=== PATIENT | male | born 1955 | race Caucasian/White ===

== ENCOUNTER 2020-05-03 13:46 | Inpatient (IN) | payer MEDICARE, MEDICAID, SELFPAY ==
[2020-05-03] VITALS (21 sets, daily range): BP systolic 118–160; BP diastolic 43–74; PULSE 38–83; RESP 14–25; TEMP 36.7–36.9; O2SAT 92–99; BMI 33.7
--- NOTE | 2020-05-03 14:07 | XR_ITS ---
WS: [id number] EXAM: AP CHEST: PORTABLE UPRIGHT DATE OF EXAM: 05/03/2020, 1413 hours COMPARISON: NONE HISTORY: Patient is 64 years old with atraumatic chest pain. FINDINGS: The cardiac silhouette is normal in size. The mediastinal contours are normal. The pulmonary vas cularity is normal. Scattered calcified granulomas in both lungs. Lungs otherwise clear of infiltrat e. There is no effusion or pneumothorax. Scattered degenerative changes are seen in the spine. XR/XR chest 1V portable [id number] IMPRESSION: No acute pulmonary disease.
--- NOTE | 2020-05-03 14:08 | ECG_ITS ---
[facility] Test Date: 2020-05-03 Pat Name: Ar Prather Department: Room: Gender: Male Fence Rider: : 1955 Requested By: Michelle Muñiz Order Number: [id number] Srikanth MD: Talib Herndon M.D. Measurements Intervals Winn Rate: 43 P: 42 HI: 159 QRS: -58 QRSD: 157 T: 15 QT: 473 QTc: 404 Interpretive Statements Sinus rhythm with a second-degree type II AV block RIGHT BUNDLE BRANCH BLOCK [120+ ms QRS DURATION, UPRIGHT V1, 40+ ms S IN I/aVL/V4/V5/V6] LEFT ANTERIOR FASCICULAR BLOCK [QRS AXIS <= -45, QR IN I, RS IN II] POSSIBLE LEFT VENTRICULAR HYPERTROPHY [VOLTAGE CRITERIA PLUS LAE OR QRS WIDENING] POSSIBLE SEPTAL MYOCARDIAL INFARCTION [30 ms Q WAVE IN V1/V2], PROBABLY OLD No previous ECG available for comparison Electronically Signed On 05-03-2020 23:03:04 CDT by Talib Herndon M.D. [id number] [email or web address]
--- NOTE | 2020-05-03 14:11 | W.ED.CHESTPA ---
HPI - Chest Pain General: Chief Complaint: Chest Pain Stated Complaint: heart problems Time Seen by Provider: 05/03/20 14:05 Source: patient Mode of arrival: ambulatory Limitations: no limitations History of Present Illness: HPI narrative: Mr. Prather is a 64-year-old male sent to the ER by his primary care physician with a concern of his EKG. Patient states he is been dizzy and lightheaded for the past 3 weeks. He has occasional near syncopal episodes with standing. He also has right-sided chest pain he states radiates through to his back. Describes as an ache. He denies any increased shortness of breath than his normal, diaphoresis, nausea or vomiting or having anything similar in the past. He states his pain is been constant since 6 or 7:00 this morning. Patient is unaware of any other aggravating or alleviating factors. He denies any other complaints or concerns. Associated symptoms: Deny abdominal pain, diaphoresis, dyspnea, fever(s), nausea, palpitations, syncope or vomiting Review of Systems Const: Denies: fever(s), chills, body aches, fatigue, malaise or diaphoresis Eyes: Denies: change in vision, blurry vision, photophobia, eye discomfort, eye discharge or eye redness ENMT: Denies: throat pain, odynophagia, hoarseness, swelling of lips/tongue, ear or mastoid pain, ear discharge, change in hearing or nasal discharge Card: Denies: palpitations, irregular heart rhythm, edema, lightheadedness, syncope, pre-syncope, dyspnea on exertion or orthopnea Resp: Denies: dyspnea, productive cough, non-productive cough, wheezing, hemoptysis or chest congestion GI: Denies: abdominal pain, nausea, vomiting, hematemesis, coffee ground emesis, heartburn, diarrhea, constipation, GI cramping, hematochezia or melena : Denies: flank pain, dysuria, urinary frequency, urinary urgency or hematuria Musc: Denies: neck pain, back pain, extremity pain, extremity swelling, joint pain, joint swelling, joint redness, joint warmth or joint stiffness Skin/Breast: Denies: rash, pruritus, erythema or skin tenderness Neuro: Reports: dizziness; Denies: headache(s), numbness in extremities, weakness in extremities, sensory changes, lack of coordination, difficulty walking, vertigo, confusion, Slurred speech present or seizure-like activity Wojciech/Lymph: Denies: easy bruising, easy bleeding, petechiae, purpura or enlarged lymph nodes All/Imm: Denies: urticaria, throat swelling, tongue swelling, facial swelling or acute wheezing PFSH ED PFSH: Medical History (Updated 05/03/20 @ 16:29 by Michelle Meléndez) Abdominal aortic aneurysm COPD (chronic obstructive pulmonary disease) Depression DJD (degenerative joint disease) Hypertension Rheumatoid arthritis Tobacco dependency Family History (Updated 05/03/20 @ 15:54 by Brian Sánchez MD) Other CAD (coronary artery disease) Social History (Updated 05/03/20 @ 15:54 by Brian Sánchez MD) Smoking and tobacco status: current some day smoker Alcohol intake: current Alcohol intake frequency: 0-2 Drinks per Day Substance/Drug Use: never Physical Exam Const: COMMON NORMALS: no acute distress, patient oriented x3, no limitations, healthy appearing and well nourished GENERAL APPEARANCE: cooperative, well kempt and well developed HENMT: COMMON NORMALS: normocephalic, atraumatic, external ears normal, EAC's normal and Normal external nose present HEAD & SCALP: normal to inspection, normocephalic and atraumatic FACE & SINUS: normal facial exam and face symmetric NOSE: Normal external nose present and Normal nares present EXTERNAL EAR: Yes external ears normal EXTERNAL AUDITORY CANAL: EAC's normal MOUTH: Normal oral and palatal mucosa present, lip normal and tongue normal Eye: COMMON NORMALS: Equal, round and reactive pupils present and conjunctivae normal GENERAL EYE: appearance normal, both eyes and all related structures ALIGNMENT: Yes alignment normal PERIORBITAL: periorbital findings normal EYELID: eyelids normal CONJUNCTIVA: Yes conjunctivae normal SCLERA: sclerae normal PUPIL: Yes Equal, round and reactive pupils present Neck/C-Spine: COMMON NORMALS: full ROM, no lymphadenopathy, supple, no meningeal signs and no JVD GENERAL: Yes normal visual inspection and Yes trachea midline Chest: COMMONS NORMALS: normal inspection of the chest and normal palpation of entire chest wall Resp: COMMON NORMALS: normal respiratory effort, No retractions, No use of accessory muscles and clear to auscultation bilaterally EFFORT & INSPECTION: Yes able to speak in complete sentences and Yes symmetric chest movement AUSCULTATION: clear to auscultation bilaterally, no crackles, no rales, no rhonchi and no wheezes Cardio: COMMON NORMALS: no JVD, regular rate, regular rhythm, S1 normal heart sound present and S2 normal heart sound present RATE: regular rate RHYTHM: regular rhythm HEART SOUNDS: S1 normal heart sound present, S2 normal heart sound present, no click, no gallops, no murmurs, no rubs and abnormal split S2 GI: COMMON NORMALS: Soft to palpation and No hepatosplenomegaly present PALPATION: Yes Soft to palpation, No Tenderness to palpation present (GI), No Guarding due to palpation present (GI), No Rigid due to palpation, Yes No hepatosplenomegaly present, No Hernia present, No Palpable mass present and No Pulsatile mass present : COMMON NORMALS: Yes no CVA tenderness BLADDER/KIDNEY EXAM: Yes no CVA tenderness Back/Pelvis: COMMON NORMALS: no CVA tenderness, thoracic and lumbar spine normal to inspection, no thoracic nor lumbar tenderness and thoraco-lumbar ROM normal Extremity: COMMON NORMALS: normal to inspection, full ROM, capillary refill normal, no joint enlargement, no clubbing, cyanosis or edema and no calf tenderness Neuro: COMMON NORMALS: patient oriented x3, CN's II-XII intact bilaterally, moves all extremities, no focal motor deficits and no sensory deficits noted MENINGEAL SIGNS: Yes no meningeal signs SPEECH: speech normal Psych: COMMON NORMALS: mental status grossly normal, Normal thought process present, cooperative, normal affect, speech normal and activity/motor behavior normal APPEARANCE: Yes well kempt SPEECH: Yes normal speech THOUGHT PROCESS: Normal thought process present Skin: COMMON NORMALS: no rashes or lesions noted, turgor normal, no jaundice, no petechiae and no mottling GENERAL SKIN EXAM: no rashes or lesions noted and turgor normal Course Vital Signs: Vital signs: Vital Signs Temperature 98.0 F 05/03/20 13:49 Pulse Rate 63 05/03/20 14:45 Respiratory Rate 15 05/03/20 14:45 Blood Pressure 141/72 05/03/20 14:45 Pulse Oximetry 97 05/03/20 14:45 MDM - Chest Pain MDM Narrative: Medical decision making narrative: The case was reviewed with Dr. Pickett, he will consult would like the hospitalist to admit. He thinks the patient is likely going to need a pacemaker. The case reviewed with Dr. Sánchez he is agreeable to admission to the ICU. Currently the patient's heart rate is in the 50s on a low-dose of dopamine. Lab Data: Attestation: I reviewed the patient's lab results. Labs: Lab Results 05/03/20 05/03/20 05/03/20 Range/Units 14:32 14:32 14:32 WBC 7.2 (4.0-10.0) 10^3/ uL RBC 4.22 (4.1-5.3) 10^6/u L Hgb 13.7 (11.7-16.6) g/dL Hct 41.0 L (42.0-52.0) % MCV 97.2 H (80-94) fL MCH 32.5 (28.0-34.0) pg MCHC 33.4 (30.0-36.0) g/dL RDW 12.5 (12.1-15.1) % Plt Count 276 (130-400) 10^3/c mm MPV 10.2 (7.4-10.4) fL Neut % (Auto) 69.6 % Lymph % (Auto) 17.5 % Van Zandt % (Auto) 11.1 % Eos % (Auto) 1.1 % Baso % (Auto) 0.4 % Neut # (Auto) 5.01 (1.8-7.7) 10^3/u L Lymph # (Auto) 1.3 (0.8-4.8) 10^3/u L [place]t # (Auto) 0.8 (0.2-0.9) 10^3/u L Eos # (Auto) 0.1 (0.0-0.8) 10^3/u L Baso # (Auto) 0.0 (0.0-0.1) 10^3/u L Nucleated RBC % (a uto) 0 % Nucleated RBCs # 0.0 /100WBC PT 13.00 (12.1-14.9) SECO NDS INR 0.96 (0.8-1.2) APTT 25.2 (23.9-36.7) SECO NDS Sodium 136 (136-145) mmol/L Potassium 4.4 (3.5-5.1) mmol/L Chloride 103 (98-107) mmol/L Carbon Dioxide 23 (22-29) mmol/L Anion Gap 14.4 (5-19) BUN 22 (8-23) mg/dL Creatinine 0.9 (0.7-1.2) mg/dL GFR Calculation 84.4 L (90-130) mL/min Glucose 107 (65-115) mg/dL Calculated Osmolal ity 279 L (285-295) mOsm/k g Calcium 9.5 (8.5-10.5) mg/dL Magnesium 2.0 (1.7-2.3) mg/dL Total Bilirubin 0.5 (0.15-1.2) mg/dL AST 57 H (0-40) U/L ALT 32 (0-41) U/L Alkaline Phosphata se 60 (40-130) IU/L Troponin T Baselin e (0-15) ng/L Total Protein 6.9 (6.6-8.7) g/dL Albumin 4.4 (3.5-5.2) g/dL Globulin 2.5 (1.3-4.6) g/dL Free T4 0.95 (0.82-1.77) ng/d L Urine Color (Yellow) Urine Appearance (CLEAR) Urine pH (5-7) Ur Specific Gravit y (1.005-1.030) Urine Protein (Negative) Urine Glucose (UA) (Normal) Urine Ketones (Negative) Urine Blood (Negative) Urine Nitrate (Negative) Urine Bilirubin (NEGATIVE) Urine Urobilinogen (Negative) mg/dL Ur Leukocyte Maria D ase (Negative) Urine RBC (0-2) /hpf Urine WBC (0-5) /hpf Ur Squamous Epith Cells (0-5) Amorphous Sediment Urine Bacteria (NONE) 05/03/20 05/03/20 Range/Units 14:32 14:44 WBC (4.0-10.0) 10^3/ uL RBC (4.1-5.3) 10^6/u L Hgb (11.7-16.6) g/dL Hct (42.0-52.0) % MCV (80-94) fL MCH (28.0-34.0) pg MCHC (30.0-36.0) g/dL RDW (12.1-15.1) % Plt Count (130-400) 10^3/c mm MPV (7.4-10.4) fL Neut % (Auto) % Lymph % (Auto) % Van Zandt % (Auto) % Eos % (Auto) % Baso % (Auto) % Neut # (Auto) (1.8-7.7) 10^3/u L Lymph # (Auto) (0.8-4.8) 10^3/u L [place]andt # (Auto) (0.2-0.9) 10^3/u L Eos # (Auto) (0.0-0.8) 10^3/u L Baso # (Auto) (0.0-0.1) 10^3/u L Nucleated RBC % (a uto) % Nucleated RBCs # /100WBC PT (12.1-14.9) SECO NDS INR (0.8-1.2) APTT (23.9-36.7) SECO NDS Sodium (136-145) mmol/L Potassium (3.5-5.1) mmol/L Chloride (98-107) mmol/L Carbon Dioxide (22-29) mmol/L Anion Gap (5-19) BUN (8-23) mg/dL Creatinine (0.7-1.2) mg/dL GFR Calculation (90-130) mL/min Glucose (65-115) mg/dL Calculated Osmolal ity (285-295) mOsm/k g Calcium (8.5-10.5) mg/dL Magnesium (1.7-2.3) mg/dL Total Bilirubin (0.15-1.2) mg/dL AST (0-40) U/L ALT (0-41) U/L Alkaline Phosphata se (40-130) IU/L Troponin T Baselin e 14 (0-15) ng/L Total Protein (6.6-8.7) g/dL Albumin (3.5-5.2) g/dL Globulin (1.3-4.6) g/dL Free T4 (0.82-1.77) ng/d L Urine Color Yellow (Yellow) Urine Appearance Clear (CLEAR) Urine pH 5 (5-7) Ur Specific Gravit y 1.020 (1.005-1.030) Urine Protein Neg (Negative) Urine Glucose (UA) Norm (Normal) Urine Ketones Negative (Negative) Urine Blood Neg (Negative) Urine Nitrate Negative (Negative) Urine Bilirubin Neg (NEGATIVE) Urine Urobilinogen 1 H (Negative) mg/dL Ur Leukocyte Maria D ase Negative (Negative) Urine RBC 0-4 H (0-2) /hpf Urine WBC None (0-5) /hpf Ur Squamous Epith Cells None (0-5) Amorphous Sediment Not Reportable Urine Bacteria None (NONE) Imaging Data^: CXR: Attestation: I personally reviewed and interpreted this imaging study as follows: My impression: No acute cardiopulmonary finding EKG Data^: EKG 1: Attestation: I personally reviewed and interpreted this EKG as follows: EKG interpretation date: 05/03/20 EKG interpretation time: 13:52 Interpretation: Sinus rhythm at 43 beats a minute with probable second-degree AV heart block type II. Right bundle branch block, LVH. EKG 2: Attestation: I personally reviewed and interpreted this EKG as follows: EKG interpretation date: 05/03/20 EKG interpretation time: 16:12 Interpretation: Normal sinus rhythm at 66 beats a minute second-degree AV block type II, right bundle branch block. LVH. Discharge Plan Discharge Patient Disposition: Admitted As Inpatient Clinical Impression: Mobitz type 2 second degree heart block Condition: Stable Prescriptions: No Action cyclobenzaprine 10 mg tablet 10 mg PO TID PRN (Reason: muscle spasms) RF: 0 prednisone 5 mg tablet 5 mg PO DAILY RF: 0 hydrocodone-acetaminophen 10-325 mg tablet 1 tab PO Q6H PRN (Reason: Pain) RF: 0 venlafaxine 100 mg tablet 100 mg PO DAILY RF: 0 lisinopril-hydrochlorothiazide 20-25 mg tablet 1 tab PO DAILY RF: 0 montelukast 10 mg tablet 10 mg PO DAILY RF: 0 hydroxychloroquine 200 mg tablet 200 mg PO BID RF: 0 albuterol sulfate 90 mcg/actuation HFA aerosol inhaler See Rx Instructions .ROUTE .COMPLEX RF: 0 loratadine 10 mg tablet 10 mg PO DAILY RF: 0 naproxen 500 mg tablet 500 mg PO BID RF: 0 Restasis 0.05 % dropperette See Rx Instructions .ROUTE .COMPLEX RF: 0 Symbicort 160-4.5 mcg/actuation HFA aerosol inhaler See Rx Instructions .ROUTE .COMPLEX RF: 0 azelastine-fluticasone 137-50 mcg/spray spray,non-aerosol See Rx Instructions .ROUTE .COMPLEX RF: 0 Xeljanz XR 11 mg tablet extended release 24 hr 11 mg PO DAILY RF: 0 Referrals: Beverly Griffith FNP [Primary Care Provider] - Coding Level of Care Code ED Back Tender Cylinder for Chg Fwd Exam Comprehensive
[2020-05-03] MEDS: sodium chloride 0.9% 1,000 ML 100 ML IV ×2 (14:15→18:40)
[2020-05-03 14:40] LABS: Basophils % 0.4 %; Eosinophils # 0.1 10^3/uL (0.0-0.8); Eosinophils % 1.1 %; Hemoglobin 13.7 g/dL (11.7-16.6); Lymphocytes # 1.3 10^3/uL (0.8-4.8); Lymphocytes % 17.5 %; Mean Corpuscular HGB Conc 33.4 g/dL (30.0-36.0); Mean Corpuscular Hemoglobin 32.5 pg (28.0-34.0); Mean Corpuscular Volume 97.2 fL (80-94); Mean Platelet Volume 10.2 fL (7.4-10.4); Monocytes # 0.8 10^3/uL (0.2-0.9); Monocytes % 11.1 %; Neutrophils # 5.01 10^3/uL (1.8-7.7); Neutrophils % 69.6 %; Nucleated Red Blood Cells % 0 %; Platelet Count 276 10^3/cmm (130-400); Red Blood Count 4.22 10^6/uL (4.1-5.3); Red Cell Distribution Width 12.5 % (12.1-15.1); White Blood Count 7.2 10^3/uL (4.0-10.0)
[2020-05-03 14:57] LABS: INR 0.96 (0.8-1.2)
[2020-05-03 14:58] LABS: Partial Thromboplastin Time 25.2 SECONDS (23.9-36.7)
[2020-05-03 15:01] LABS: Troponin(5th) Baseline 14 ng/L (0-15)
[2020-05-03] MEDS: atropine 0.1 mg/mL Syr 10 mL 0.5 MG IVP (15:05)
[2020-05-03 15:09] LABS: Alanine Aminotransferase 32 U/L (0-41); Albumin Level 4.4 g/dL (3.5-5.2); Alkaline Phosphatase 60 IU/L (40-130); Anion Gap 14.4 (5-19); Aspartate Amino Transferase 57 U/L (0-40); Blood Urea Nitrogen 22 mg/dL (8-23); Calcium 9.5 mg/dL (8.5-10.5); Carbon Dioxide 23 mmol/L (22-29); Chloride 103 mmol/L (98-107); Free T4 Free Thyroxine 0.95 ng/dL (0.82-1.77); Globulin 2.5 g/dL (1.3-4.6); Glomerular Filtration Rate 84.4 mL/min (90-130); Glucose 107 mg/dL (65-115); Osmolality Calculated 279 mOsm/kg (285-295); Potassium 4.4 mmol/L (3.5-5.1); Sodium 136 mmol/L (136-145); Total Bilirubin 0.5 mg/dL (0.15-1.2); Total Protein 6.9 g/dL (6.6-8.7)
[2020-05-03] MEDS: DOPamine drip 400 MG/250 ML PREMIX 19.5 MG IV ×2 (15:15→21:08)
[2020-05-03 15:22] LABS: Add Urine Culture? No; Bilirubin Urine Neg (NEGATIVE); Blood Urine Neg (Negative); Glucose Urine UA Norm (Normal); Ketones Urine Negative (Negative); Leukocyte Esterase Urine Negative (Negative); Nitrate Urine Negative (Negative); Protein Urine Neg (Negative); RBC Urine 0-4 /hpf (0-2); Urine Appearance Clear (CLEAR); Urine Color Yellow (Yellow); Urobilinogen Urine 1 mg/dL (Negative); pH Urine 5 (5-7)
--- NOTE | 2020-05-03 15:50 | P.HP_ITS ---
Providers/Chief Complaint Primary Care Provider: NIKI Lamb Chief Complaint: heart problems History of Present Illness Ar Prather is a 64 year old male that presents to the emergency department with history of dizziness for the last 3 weeks, most accentuated when he stands up from a sitting position. He has had one episode where he almost lost consciousness. He has had occasional chest discomfort, mainly in the right side of his chest. It goes to his back and as an ache. He reports no chest discomfort with inspiration, no leg pain or swelling. He denies any exertional quality to it. He states the discomfort was more significant today so he came into the hospital. He has not had any fever, exposure to COVID, or personally had COVID. He denies any prior history of heart disease. He does relate a history of an abdominal aortic aneurysm, followed by vascular surgery at [facility]. According to ER staff, his heart rate has been as low as the mid 30s, and he has been in a Mobitz type II block. He was started on dopamine for this symptomatic bradycardia and his heart rate is currently 50. Review of Systems General: Reports: 10 or more systems reviewed and unremarkable except in HPI and below Const: Denies: fever(s) Eyes: Denies: change in vision ENMT: Denies: throat pain Card: Reports: chest pain Resp: Denies: dyspnea GI: Denies: abdominal pain : Denies: flank pain Musc: Denies: neck pain Skin/Breast: Denies: rash Neuro: Denies: headache(s) Psych: Denies: anxiety Endo: Denies: polyuria Wojciech/Lymph: Denies: easy bruising All/Imm: Denies: urticaria Medications/Allergies Home Medications Medication Instructions Recorded Confirmed Last Taken Type albuterol sulfate See Rx Instructions .ROUTE .COMPLEX 05/03/20 05/03/20 Unknown History azelastine-fluticasone See Rx Instructions .ROUTE .COMPLEX 05/03/20 05/03/20 05/03/20 History budesonide-formoterol [Symbicort] See Rx Instructions .ROUTE .COMPLEX 05/03/20 05/03/20 05/03/20 History cyclobenzaprine 10 mg PO TID PRN 05/03/20 05/03/20 Unknown History cyclosporine [Restasis] See Rx Instructions .ROUTE .COMPLEX 08/05/03/20 05/03/20 History hydrocodone-acetaminophen 1 tab PO Q6H PRN 05/03/20 05/03/20 Unknown History hydroxychloroquine 200 mg PO BID 05/03/20 05/03/20 05/03/20 History lisinopril-hydrochlorothiazide 1 tab PO DAILY 05/03/20 05/03/20 05/03/20 History loratadine 10 mg PO DAILY 05/03/20 05/03/20 05/03/20 History montelukast 10 mg PO DAILY 05/03/20 05/03/20 05/02/20 History naproxen 500 mg PO BID 05/03/20 05/03/20 05/03/20 History prednisone 5 mg PO DAILY 05/03/20 05/03/20 05/03/20 History tofacitinib [Xeljanz XR] 11 mg PO DAILY 05/03/20 05/03/20 05/03/20 History venlafaxine 100 mg PO DAILY 05/03/20 05/03/20 05/03/20 History Allergies Allergy/AdvReac Type Severity Reaction Status Date / Time etanercept [From Enbrel] Allergy ADR-Agitate Verified 05/03/20 15:27 d PFSH Acute PFSH: Medical History (Updated 05/03/20 @ 16:05 by Brian Sánchez MD) Abdominal aortic aneurysm COPD (chronic obstructive pulmonary disease) Depression DJD (degenerative joint disease) Hypertension Rheumatoid arthritis Tobacco dependency Family History (Updated 05/03/20 @ 15:54 by Brian Sánchez MD) Other CAD (coronary artery disease) Social History (Updated 05/03/20 @ 15:54 by Brian Sánchez MD) Smoking and tobacco status: current some day smoker Alcohol intake: current Alcohol intake frequency: 0-2 Drinks per Day Substance/Drug Use: never Supplemental PFSH Information: Denies significant related surgical procedures. Vitals/I&O/Wt Last Vital Signs Temp 98.0 F 05/03/20 13:49 Pulse 63 05/03/20 14:45 Resp 15 05/03/20 14:45 BP 141/72 05/03/20 14:45 Pulse Ox 97 05/03/20 14:45 Weight last 48 hrs Weight 103.873 kg Physical Exam Narrative: EXAM NARRATIVE: General exam is a white male, no apparent distress on dopamine with a heart rate approximately 52 HEENT: Pupils equally round. Oropharynx clear. Neck is supple no lymphadenopathy or thyromegaly Cardiovascular bradycardic, 2/6 systolic murmur Lungs clear no wheezing or crackles. Diminished breath sounds bilaterally. Abdomen is soft with positive bowel sounds. No obvious organomegaly was deferred Extremities no cyanosis clubbing or edema, cap refill brisk, pulses palpable Skin no rash Neuro no focal deficits Data : 05/03/20 14:32 05/03/20 14:32 Other data: EKG in the emergency department demonstrated a heart rate of 43, Mobitz type II block, left axis deviation, right bundle branch block Free T4 is normal. Troponin is 14. AST 57, the rest of the LFTs are normal. Chest x-ray no infiltrate. A&P Assessment and plan (1) Mobitz (type) II atrioventricular block: Significant bradycardia, with what appears to be a Mobitz type II block. Placed on dopamine in the emergency department. Will continue. Admission to ICU Cardiology consultation Check TSH Magnesium and potassium levels have been checked and normal Status: Acute (2) Dizziness: Secondary to above Status: Acute (3) Chest pain: May have been related to his abnormal rhythm. We will attempt to get records regarding his past history of aortic aneurysm. From what they described this was abdominal. Serial troponins Check echocardiogram Status: Acute (4) Tobacco dependency: Encourage abstinence Status: Acute Additional A&P Information History of aortic aneurysm, which patient reports is abdominal. Will request records. Hypertension. Hold meds currently Rheumatoid arthritis, holding meds currently Probable COPD. Albuterol. Full code SCDs for DVT prophylaxis, pending cardiology evaluation as he may need pacemaker placement. Attestations Medical Necessity Statement*: Will need greater than 2 midnight stay for evaluation and treatment of cardiac arrhythmia. Time Spent in Patient Care: Greater than 35 minutes Coding Level of Care Code Acute Community Service Aide for Chg Fwd Diagnoses Mobitz (type) II atrioventricular block I44.1 Dizziness R42 Chest pain R07.9 Tobacco dependency F17.200
--- NOTE | 2020-05-03 15:57 | USCV_ITS ---
Ar Prather Age: 64 Gender: M : 1955 Exam Date: 05/03/2020 16:21 Ordering Phys: Brian Sánchez MD Technologist: Aby Jones Exam Location: [facility] [place]_ Indication: ARRYHTHMIA BP: 138 / 63 HR: 46 Rhythm: Other Technical Quality: Fair MEASUREMENTS (Male / Female) Normal Values 2D ECHO LV Diastolic Diameter PLAX 5.0 cm 4.2 - 5.9 / 3.9 - 5.3 cm LV Systolic Diameter PLAX 2.9 cm LV Chamber Size 4.7 cm IVS Diastolic Thickness 1.3 cm 0.6 - 1.0 / 0.6 - 0.9 cm IVS Systolic Thickness 2.1 cm LVPW Diastolic Thickness 1.0 cm 0.6 - 1.0 / 0.6 - 0.9 cm LVPW Systolic Thickness 1.7 cm RV Chamber Size 3.0 cm LVOT Diameter 2.1 cm LV Ejection Fraction 2D Teich 71.1 % LV Ejection Fraction MOD 2C 68.6 % LV Ejection Fraction 2C AL 69.4 % LA Diameter 4.0 cm LA Width 3.3 cm LA Height 5.0 cm RA Width 2.8 cm RA Height 5.0 cm Aorta at Sinotubular Diameter 3.3 cm M-MODE LV Diastolic Diameter MM 6.5 cm 4.2 - 5.9 / 3.9 - 5.3 cm LV Systolic Diameter MM 3.9 cm LV Ejection Fraction MM Teich 69.7 % IVS Diastolic Thickness MM 0.9 cm 0.6 - 1.0 / 0.6 - 0.9 cm IVS Systolic Thickness MM 1.6 cm LVPW Diastolic Thickness MM 1.2 cm 0.6 - 1.0 / 0.6 - 0.9 cm LVPW Systolic Thickness MM 1.7 cm RV Diastolic Diameter MM 1.1 cm Aortic Annulus Diameter 3.8 cm LA Ao Ratio MM 1.0 MV E Point Septal Separation 1.2 cm DOPPLER AV Peak Velocity 165.0 cm/s LVOT Peak Velocity 102.0 cm/s AV Area Cont Eq vti 2.2 cm squared AV Area Cont Eq pk 2.1 cm squared MV Area PHT 4.1 cm squared Mitral E to A Ratio 0.8 MV E' Velocity 8.0 cm/s Mitral E to MV E' Ratio 9.3 Mitral E to LV E' Lateral Ratio 10.3 Mitral E to LV E' Septal Ratio 8.6 TR Peak Velocity 204.2 cm/s TR Peak Gradient 16.7 mmHg TR Mean Velocity 176.1 cm/s TR Mean Gradient 12.5 mmHg TR Velocity Time Integral 49.2 cm TV Peak E Velocity 92.0 cm/s PV Peak Velocity 104.0 cm/s FINDINGS Left Ventricle Normal left ventricular cavity size. Normal left ventricular systolic function. No regional wall motion abnormalities. Left ventricular ejection fraction is estimated at 60 %. Grade I/IV diastolic dysfunction (abnormal relaxation filling pattern), normal to mildly elevated filling pressures. Right Ventricle The right ventricle is normal in size and function.RVSP could not be calculated due to incomplete tricuspid regurgitation velocity profile. Right Atrium The right atrium is normal in size. Left Atrium The left atrium is normal in size. Mitral Valve Mildly thickened mitral valve. No mitral valve stenosis. Aortic Valve Moderate aortic valve calcification. No aortic valve stenosis. Trace aortic valve regurgitation. Tricuspid Valve Structurally normal tricuspid valve without significant stenosis or regurgitation. Pulmonic Valve Structurally normal pulmonic valve without significant stenosis. There is no pulmonic regurgitation. Pericardium Normal pericardium without effusion. Aorta Normal ascending aorta dimension. CONCLUSIONS 1-Normal left ventricular cavity size. Normal left ventricular systolic function. No regional wall motion abnormalities. Left ventricular ejection fraction is estimated at 60 %. Grade I/IV diastolic dysfunction (abnormal relaxation filling pattern), normal to mildly elevated filling pressures. 2-There is no pericardial effusion. 3-No significant valve abnormalities. 4-The right ventricle is normal in size and function.RVSP could not be calculated due to incomplete tricuspid regurgitation velocity profile. 5-There are no prior echocardiogram studies to compare. Clarke Harris MD (Electronically Signed) Final Date: 03 May 2020 21:36 S
--- NOTE | 2020-05-03 16:08 | ECG_ITS ---
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 Measurements Intervals [place] Rate: 66 P: UT: -1 QRS: -64 QRSD: 153 T: -7 QT: 494 QTc: 519 Interpretive Statements SINUS RHYTHM WITH 2ND DEGREE type 2 AV BLOCK, 2:1 OR MOBITZ TYPE II RIGHT BUNDLE BRANCH BLOCK [120+ ms QRS DURATION, UPRIGHT V1, 40+ ms S IN I/aVL/V4/V5/V6] LEFT ANTERIOR FASCICULAR BLOCK [QRS AXIS <= -45, QR IN I, RS IN II] MINIMAL VOLTAGE CRITERIA FOR LVH, CONSIDER NORMAL VARIANT [MEETS CRITERIA IN ONE OF: R(aVL), S(V1), R(V5), R(V5/V6)+S(V1)] PROBABLE SEPTAL MYOCARDIAL INFARCTION , PROBABLY OLD [35 ms Q WAVE IN V1/V2] CRITICAL TEST RESULT No previous ECG available for comparison Electronically Signed On 05-03-2020 23:35:43 CDT by Talib Herndon M.D. [id number]
[2020-05-03 16:55] LABS: Thyroid Stimulating Hormone 0.84 uIU/mL (0.27-4.20)
[2020-05-03 17:14] LABS: Troponin 5 2HR 16.38 ng/L (0-15); Troponin 5 2HR Delta 2.38 ABS# (0-10)
--- NOTE | 2020-05-03 19:24 | PM.CONSULT ---
Providers/Reason For Consult Consulting Physican/Specialty*: Cardiology Reason for Consult*: High degree AV block Mobitz type II with symptomatic bradycardia Presyncope Chest pain concerning for angina Attending Physician: Brian Sánchez MD Primary Care Provider: NIKI Lamb History of Present Illness History of Present Illness Ar Prather is a 64 year old male presented to ER with fatigue shortness of breath chest pain. He was found to be bradycardic with heart rate into 40s and EKG consistent with Mobitz type II heart block. According to the patient and his for the past 2 to 3 months he has been struggling with fatigue dizziness and occasional feeling of presyncope. Yesterday he was about to pass out when he tried to stand up from sitting position but his son caught him. Today he went to urgent care where they noted slow heart rate and instructed him to go to ER. He gives me history of on and off chest pain anywhere from 5 to 15 minutes 2-3 times a week sometimes at rest and other on exertion. He has not seek any medical attention for it. He denies any prior history of CAD, bradycardia, stress test or angiograms. He has more than 50-tice-bimc of smoking, hypertension COPD and rheumatoid arthritis. He has also been diagnosed with possible ascending aortic aneurysm according to him he had CT chest he was told that he has aneurysm of 4.5 cm2. He has history of tick borne fever for which he has been treated in the past. He denies being on cornelia wisam or any other azna-gxo-spcgoxv medicine. He has persistent cough for long period of time he is taking lisinopril. Review of Systems General: Reports: 10 or more systems reviewed and unremarkable except in HPI and below Const: Denies: fever(s), chills, body aches, fatigue, malaise or diaphoresis Eyes: Denies: change in vision, blurry vision, photophobia, eye discomfort, eye discharge or eye redness ENMT: Denies: throat pain, odynophagia, hoarseness, swelling of lips/tongue, ear or mastoid pain, ear discharge, change in hearing or nasal discharge Card: Reports: chest pain; Denies: palpitations, irregular heart rhythm, edema, lightheadedness, syncope, pre-syncope, dyspnea on exertion or orthopnea Resp: Denies: dyspnea, productive cough, non-productive cough, wheezing, hemoptysis or chest congestion GI: Denies: abdominal pain, nausea, vomiting, hematemesis, coffee ground emesis, heartburn, diarrhea, constipation, GI cramping, hematochezia or melena : Denies: flank pain, dysuria, urinary frequency, urinary urgency or hematuria Musc: Denies: neck pain, back pain, extremity pain, extremity swelling, joint pain, joint swelling, joint redness, joint warmth or joint stiffness Skin/Breast: Denies: rash, pruritus, erythema or skin tenderness Neuro: Reports: dizziness; Denies: headache(s), numbness in extremities, weakness in extremities, sensory changes, lack of coordination, difficulty walking, vertigo, confusion, Slurred speech present or seizure-like activity Psych: Denies: anxiety Endo: Denies: polyuria Wojciech/Lymph: Denies: easy bruising, easy bleeding, petechiae, purpura or enlarged lymph nodes All/Imm: Denies: urticaria, throat swelling, tongue swelling, facial swelling or acute wheezing Meds/Allergies Home Medications and Allergies Home Medications Medication Instructions Recorded Confirmed Last Taken Type albuterol sulfate See Rx Instructions .ROUTE .COMPLEX 05/03/20 05/03/20 Unknown History azelastine-fluticasone See Rx Instructions .ROUTE .COMPLEX 05/03/20 05/03/20 05/03/20 History budesonide-formoterol [Symbicort] See Rx Instructions .ROUTE .COMPLEX 05/03/20 05/03/20 05/03/20 History cyclobenzaprine 10 mg PO TID PRN 05/03/20 05/03/20 Unknown History cyclosporine [Restasis] See Rx Instructions .ROUTE .COMPLEX 05/03/20 05/03/20 05/03/20 History hydrocodone-acetaminophen 1 tab PO Q6H PRN 05/03/20 05/03/20 Unknown History hydroxychloroquine 200 mg PO BID 05/03/20 05/03/20 05/03/20 History lisinopril-hydrochlorothiazide 1 tab PO DAILY 05/03/20 05/03/20 05/03/20 History loratadine 10 mg PO DAILY 05/03/20 05/03/20 05/03/20 History montelukast 10 mg PO DAILY 05/03/20 05/03/20 05/02/20 History naproxen 500 mg PO BID 05/03/20 05/03/20 05/03/20 History prednisone 5 mg PO DAILY 05/03/20 05/03/20 05/03/20 History tofacitinib [Xeljanz XR] 11 mg PO DAILY 05/03/20 05/03/20 05/03/20 History venlafaxine 100 mg PO DAILY 05/03/20 05/03/20 05/03/20 History Allergies Allergy/AdvReac Type Severity Reaction Status Date / Time etanercept [From Enbrel] Allergy ADR-Agitate Verified 05/03/20 15:27 d Current Medications Current Medications Generic Name Dose Route Start Last Admin Trade Name Freq PRN Reason Stop Dose Admin Sodium Chloride 1,000 mls @ 100 mls/hr 05/03/20 14:15 05/03/20 14:15 Sodium Chloride 0.9% IV 100 mls/hr .Q10H FABIENNE Administration Dopamine HCl/Dextrose 400 mg in 250 mls @ 19.476 mls/hr 05/03/20 15:15 05/03/20 15:15 Intropin Drip IV 5 mcg/kg/min CONT FABIENNE 19.5 mls/hr Administration Protocol 5 MCG/KG/MIN Sodium Chloride 1,000 mls @ 100 mls/hr 05/03/20 18:12 05/03/20 18:40 Sodium Chloride 0.9% IV 100 mls/hr .Q10H FABIENNE Administration PFSH Acute PFSH: Medical History Abdominal aortic aneurysm COPD (chronic obstructive pulmonary disease) Depression DJD (degenerative joint disease) Hypertension Rheumatoid arthritis Tobacco dependency Family History Other CAD (coronary artery disease) Social History Smoking and tobacco status: current some day smoker Alcohol intake: current Alcohol intake frequency: 0-2 Drinks per Day Substance/Drug Use: never Supplemental PFSH Information: Denies significant related surgical procedures. Vitals/I&O/Wt Last Vital Signs Temp 98.4 F 05/03/20 18:15 Pulse 81 05/03/20 18:15 Resp 19 H 05/03/20 18:15 BP 155/62 05/03/20 18:15 Pulse Ox 96 05/03/20 18:15 Weight last 48 hrs Weight 229 lb Physical Exam Narrative: EXAM NARRATIVE: GENERAL: Patient is alert, awake and oriented x3. NECK: No jugular vein distension. HEENT: No cyanosis. No icterus. No pallor. HEART: Regularly irregular S1 and S2. No murmur, rub or gallop. LUNGS: Clear to auscultate bilaterally. ABDOMEN: Soft, nontender and nondistended. Positive bowel sounds. No guarding, rebound or tenderness. CENTRAL NERVOUS SYSTEM: Grossly nonfocal. EXTREMITIES: Lower extremities without edema bilaterally. A&P Assessment and plan (1) Mobitz type 2 second degree heart block: Patient is symptomatic with high degree AV block. Twelve-lead EKG consistent with right bundle branch block and wide QRS complex. He is not on any cornelia wisam. We will rule out reversible causes such as ischemia since he is complaining of chest pain we will proceed with angiogram first thing in the morning. If he continues to exhibit symptomatic bradycardia with high degree heart block we will proceed with permanent pacemaker placement. Patient and the family has been discussed with all risk benefit and alternative for the procedure, they would like to proceed with it. Patient and family has been consented for left heart cath/PCI if indicated in the morning. For now continue dopamine drip. Atropine by bedside and monitor in ICU. Further plan will be advised. I will check TSH Status: Acute (2) Tobacco dependency: Advised quitting smoking Status: Acute (3) Chest pain: Patient is high risk for acute coronary syndrome past medical history significant for continuous tobacco abuse hypertension and rheumatoid arthritis. In the face of second-degree heart block and worsening of chest pain over the last few days would like to rule out coronary ischemia. We will proceed with left heart cath in the morning. Status: Acute Qualifiers: Chest pain type: precordial pain Qualified Code(s): R07.2 - Precordial pain (4) COPD (chronic obstructive pulmonary disease): As per medicine Status: Acute Qualifiers: COPD type: unspecified COPD Qualified Code(s): J44.9 - Chronic obstructive pulmonary disease, unspecified (5) Hypertension: Patient has history of uncontrolled hypertension he is on lisinopril. He continues to have dry hacking cough. I will discontinue lisinopril and switch him to ARB Status: Acute Qualifiers: Hypertension type: essential hypertension Qualified Code(s): I10 - Essential (primary) hypertension Consult Attestations Medical Necessity Statement: Require continuation hospitalization for above defined care. Coding Level of Care Code New Pt Acute Executive Secretary Social Welfare for g Fwd Patient Type New History Comprehensive Exam Comprehensive Medical Decision Making High Complexity Diagnoses Mobitz type 2 second degree heart block I44.1 Tobacco dependency F17.200 Chest pain R07.2 Chest pain type: precordial pain COPD (chronic obstructive pulmonary disease) J44.9 COPD type: unspecified COPD Hypertension I10 Hypertension type: essential hypertension
[2020-05-03] MEDS: HYDROcodone-acetaminophen 5-325 mg Tablet 1 TAB PO (19:45)
--- NOTE | 2020-05-03 20:08 | ECG_ITS ---
[facility] Test Date: 2020-05-03 Pat Name: Ar Prather Department: Room: ICU07 Gender: Male Database Administration Project Manager: VIRGENISAIDemi DAWKINSB: 1955 Requested By: Michelle Muñiz Order Number: [id number] Srikanth MD: Talib Herndon M.D. Measurements Intervals [place] Rate: 59 P: 55 SD: 164 QRS: -70 QRSD: 162 T: 73 QT: 503 QTc: 500 Interpretive Statements SINUS BRADYCARDIA WITH OCCASIONAL SUPRAVENTRICULAR PREMATURE COMPLEXES RIGHT BUNDLE BRANCH BLOCK [120+ ms QRS DURATION, UPRIGHT V1, 40+ ms S IN I/aVL/V4/V5/V6] LEFT ANTERIOR FASCICULAR BLOCK [QRS AXIS <= -45, QR IN I, RS IN II] SEPTAL MYOCARDIAL INFARCTION [40+ ms Q WAVE IN V1/V2], PROBABLY OLD Compared to ECG 05/03/2020 16:12:26 Sinus rhythm no longer present Myocardial infarct finding still present Electronically Signed On 05-03-2020 23:36:49 CDT by Talib Herndon M.D. [id number]
[2020-05-03 20:59] LABS: Troponin 5 6HR 28.62 ng/L (0-15)
[2020-05-03 21:16] LABS: Troponin 5 6HR Delta 14.62 ng/L (0-12)
[2020-05-04] VITALS (23 sets, daily range): BP systolic 91–170; BP diastolic 45–73; PULSE 47–88; RESP 12–27; TEMP 36.2; O2SAT 88–100
[2020-05-04] MEDS: DOPamine drip 400 MG/250 ML PREMIX 19.5 MG IV (01:02)
[2020-05-04] MEDS: HYDROcodone-acetaminophen 5-325 mg Tablet 1 TAB PO ×3 (01:03→16:31)
[2020-05-04] MEDS: HYDROmorphone 1 mg/mL INJ 1 mL 2 MG IVP ×2 (01:45→05:12)
[2020-05-04] MEDS: sodium chloride 0.9% 1,000 ML 100 ML IV (03:29)
--- NOTE | 2020-05-04 03:48 | PC.NURSE ---
Pt states he takes abobut 10 or 11 medications every day. States he is concerned about not getting them, because he will start to feel poorly without them. His pharmacy is [facility] and pt has been reassured dayshift nurse will be notified that medicines need reconciled.
[2020-05-04 04:12] LABS: Basophils % 0.4 %; Eosinophils # 0.1 10^3/uL (0.0-0.8); Eosinophils % 0.9 %; Hematocrit 40.1 % (42.0-52.0); Hemoglobin 13.7 g/dL (11.7-16.6); Lymphocytes # 0.8 10^3/uL (0.8-4.8); Lymphocytes % 8.2 %; Mean Corpuscular HGB Conc 34.2 g/dL (30.0-36.0); Mean Corpuscular Volume 96.6 fL (80-94); Mean Platelet Volume 10.4 fL (7.4-10.4); Monocytes # 1.6 10^3/uL (0.2-0.9); Monocytes % 15.7 %; Neutrophils # 7.51 10^3/uL (1.8-7.7); Neutrophils % 74.4 %; Nucleated Red Blood Cells % 0 %; Platelet Count 281 10^3/cmm (130-400); Red Blood Count 4.15 10^6/uL (4.1-5.3); Red Cell Distribution Width 12.1 % (12.1-15.1); White Blood Count 10.1 10^3/uL (4.0-10.0)
[2020-05-04 04:40] LABS: Blood Urea Nitrogen 23 mg/dL (8-23); Calcium 8.9 mg/dL (8.5-10.5); Carbon Dioxide 24 mmol/L (22-29); Chloride 104 mmol/L (98-107); Glucose 150 mg/dL (65-115); Osmolality Calculated 284 mOsm/kg (285-295); Sodium 137 mmol/L (136-145)
[2020-05-04] MEDS: DOPamine drip 400 MG/250 ML PREMIX 48.7 MG IV (05:12)
--- NOTE | 2020-05-04 06:53 | XACV_ITS ---
Exam Room: [facility] Ht: 175 cm Wt: 104 kg BSA: 2.28 m2 Gender: Male : 1955 Any Known Allergies: Other Exam Priority: Routine Procedure(s): Procedure Description: Diagnostic procedure Procedure Description: Left Heart Catheterization Procedure Description: Miscellaneous Procedure Description: Dual Chamber Pacemaker Implant Diagnostic Findings No significant disease noted in the Left Main, LAD, Circumflex, or RCA coronary arteries. Coronary angiography shows right dominance. Conclusions No significant disease noted in the Left Main, LAD, Circumflex, or RCA coronary arteries. Indication: Heart block, symptomatic bradycardia. Recommendations Usual post-cath care. Pressures Phase:Rest AO : 1 mmHg / 0 mmHg ( 0 mmHg ) @ 2:21:00 AM / ( -1 mmHg ) @ 2:37:00 AM 83 mmHg / 44 mmHg ( 59 mmHg ) @ 2:48:00 AM 125 mmHg / 89 mmHg ( 84 mmHg ) @ 2:52:00 AM Clinical Evaluation EBL: 5mL-10mL Procedural Details Procedure Consent Obtained. Pre-Procedure Time Out. Identified patient by full name and date of as verbalized by the patient/guarantor. Does the consent match the physician's order: Yes. Accurate & Complete Informed Consent: Yes. Inpatient/Outpatient History & Physical on Chart: Yes. If H&P is completed, is and addenduem needed: N/A; If yes, is the addendum complete: N/A. Visualize and Verify Site with Patient/Guarantor: N/A. Relevant Radiology Images available: Yes. Pre-op teaching completed and patient verbalized understanding. The risks, benefits, and alternatives of sedation and/or procedure were discussed by physician. The patient agrees to continue. Procedure started. Correct patient, site and procedure confirmed by cath team. PERRLA. Strong, equal hand resident inspector bilaterally. Lungs clear x 5 lobes. IV Site on Arrival: 22 gauge in the left wrist. IV Site on Arrival: 20 gauge in the right anticubital. IV Fluids: 0.9% NaCl at KVO. 0 mL infused prior to lab director. Oxygen started at 2liters/min via nasal canula. right groin was prepped with chloroprep then draped in the usual sterile fashion. right radial was prepped with chloroprep then draped in the usual sterile fashion. Physician notified. Baseline sample Acquired. HR: 71 BPM. Equipment: 6F - Radial. Cardiac Cath Pack. iJoule Manifold Kit Model BT 2000. Heparinized Saline (2 units/mL), 1000 mL bag. Physician arrived. AP pads applied to pt. Physician scrubbed in. Immediate Pre-Procedure Time Out. Correct Patient: Yes; Correct Procedure: Yes; Correct Site: Yes; Correct Patient Position: Yes; Correct Supplies: Yes; Dried Flammable Prep: Yes; Blood Products Available: No;. Lidocaine 1% infiltrated to the left radial. Arterial access obtained. wire and needle out. Arterial access obtained. A 5 thai TIG catheter in over wire. no heparin due to possible pacemaker. Multiple views taken of left coronary artery. Catheter redirected to the RCA. Catheter out. A 5 thai Jaquan catheter in over wire. Multiple views taken of left coronary artery. Catheter redirected to the RCA. Catheter out. A TR Band was successful obtaining hemostatsis at the Right Radial artery insertion site. TR band placed. Hemostasis obtained. Post Procedure: Pulses reassessed and unchanged. PERRLA. Strong, equal hand resident inspector bilaterally. No VTE prophylaxis required. Contrast type used: Omnipaque 300 mgI/mL, 500 mL bottle. [id number]. Post-op diagnosis: normal coronaries/ pacemaker inserted. Complications: none. Estimated blood loss: 5mL-10mL. [facility] Clinical Fraility Score: 2: Well. Employment Appeals Examiner Indications: New Onset Angina. Chest Pain Symptom Assessment: Atypical Angina. Cardiovascular Instability: No. Patient's family updated. Ancef 2g IV was given at 0813 in brake liner. Supplies: Cath pack, micropunture, bovie pen, 2-0 silk, 0 surgilon, 3-0 vicryl, 4-0 vicryl. Pre sponge count: 55. Pre sharps count: 22. Pre instrument count: 11. Physician notified. Physician arrived. Physician scrubbed in. Time out performed with cath team. Lidocaine 1% infiltrated to Left subclavian area. 20 mL contrast injection was performed for subclavian visualization. Access obtained in left subclavian vein with micropuncture set. Inserted guidewire #1 into left subclavian vein. Lidocaine 1% infiltrated to Left subclavian area. Incision and pacer pocket made in left subclavian region. 2-o silk used in pacer pocket. Access obtained in left subclavian vein with micropuncture set. Inserted guidewire #2 into left subclavian vein. Inserted 7 fr. safe sheath into left subclavian vein. Inserted Ventricular lead and tested. V lead retested. V lead repositioned. V lead retested. V lead repositioned. V lead retested. Safe sheath peeled away. Lead left intact. V lead retested. V lead retested. Ventricular lead sutured into place with o surgilon. V lead retested. Inserted 7 fr. safe sheath into left subclavian vein. Inserted Atrial lead and tested. A lead retested. Patient's family updated. A lead retested. Safe sheath peeled away. Lead left intact. A lead retested. Safe sheath peeled away. Lead left intact. A lead retested. Atrial lead sutured into place with o surgilon. A lead retested. Antibiotic flush used to clean pacer pocket. Generator Lot# [id number]. A Lead Lot# [id number]. V Lead Lot# [id number]. Generator attached and tested. Generator secured with o surgilon. Subcutaneous tissue closed with 3-0 vicryl. All final counts correct. Cutaneous tissue closed with 4-0 vicryl. left subclavian pocket dressed per physician order. Shoulder immobilizer in place. Julius wrap and 4x4's in place. No bleeding or hematoma noted at left subclavian pocket. Post Procedure: Pulses reassessed and unchanged. Total fluoro time: 21.60 minutes. Medication's Wasted: Lidocaine 1% = 2 mL. Medication's Wasted: Heparin = 1000 units. Total IV fluids: 200 mL. Procedure completed. Site: Right Radial artery Sheath Size: 6 Fr Hemostasis Method: TR Band Hemostasis Success: Successful Procedure Medications Start: 7:41 AM Stop: 7:41 AM Medication: Versed Amount: 1 mg Route: I.V. Start: 7:41 AM Stop: 7:41 AM Medication: Fentanyl Amount: 50 mcg Route: I.V. Start: 7:45 AM Stop: 7:45 AM Medication: Versed Amount: 1 mg Route: I.V. Start: 7:45 AM Stop: 7:45 AM Medication: Fentanyl Amount: 50 mcg Route: I.V. Start: 7:48 AM Stop: 7:48 AM Medication: Atropine Amount: 1 mg Route: I.V. Start: 8:11 AM Stop: 8:11 AM Medication: Dopamine 400mg/250 mL Amount: 58.5 ml/hr Route: I.V. drip Start: 8:29 AM Stop: 8:29 AM Medication: Versed Amount: 1 mg Route: I.V. Start: 8:29 AM Stop: 8:29 AM Medication: Fentanyl Amount: 50 mcg Route: I.V. Start: 8:40 AM Stop: 8:40 AM Medication: Versed Amount: 1 mg Route: I.V. Start: 8:40 AM Stop: 8:40 AM Medication: Fentanyl Amount: 50 mcg Route: I.V. Start: 9:02 AM Stop: 9:02 AM Medication: Versed Amount: 1 mg Route: I.V. Start: 9:24 AM Stop: 9:24 AM Medication: Versed Amount: 1 mg Route: I.V. I, the attending physician, have reviewed and verified all procedure medications. Yes, all medications given per verbal order History/Risk Factors Hypertension: Yes Dyslipidemia: No Peripheral Arterial Disease (PAD): No Myocardial Infarction (GA): No Obesity: Yes Renal Disease: No Tobacco Use: Current/Recent(w/in 1 year) Prior Interventions PCI: No CABG: No Valve Surgery: No Report Signatures Finalized by:Clarke Harris MD on 05/12/2020 5:31:11 PM
--- NOTE | 2020-05-04 07:34 | PM.CONSULT ---
Providers/Reason For Consult Consulting Physican/Specialty*: Dr. CARA Herndon/cardiology Reason for Consult*: Patient with a second-degree heart block, symptomatic bradycardia, for permanent pacemaker plantation Attending Physician: Brian Sánchez MD Primary Care Provider: NIKI Lamb History of Present Illness History of Present Illness Ar Prather is a 64 year old male who was admitted to hospital with complaints of generalized weakness/near syncope. He was found to have intermittent second-degree type II heart block with a heart rate in the upper 30s and low 40s. Patient also has been having chest pain the whole day yesterday. As per the patient and family, he has been having episodes of chest pain, feeling of weakness/lethargy/near syncope off and on for the last couple of months. Never had any Complete loss of consciousness. No history for cardiac arrhythmia. He has a history of high blood pressure, COPD and abdominal aortic aneurysm. Denies any fever or chills. No cough. No abdominal pain or dysuria. No other specific complaints. Review of Systems Narrative: CONSTITUTIONAL: No fever or chills. Feeling of lethargy and weakness as mentioned above EYES: No blurring of vision or other visual disturbances lately. ENT: No hoarseness of voice, auditory disturbances or sore throat. CARDIOVASCULAR: As mentioned above. RESPIRATORY: No significant cough. History of shortness of breath/COPD GASTROINTESTINAL: No hematemesis or melena. GENITOURINARY: No dysuria or hematuria. INTEGUMENTARY: No skin rashes or history of skin cancer. NEURO: No transient ischemic attacks or amaurosis. PSYCHIATRIC: No history of psychosis or major depression. HEMATOLOGIC: No bleeding disorders or significant anemia. ENDOCRINE: No history of polyuria or polydipsia. MUSCULOSKELETAL: History of degenerative joint disease ALLERGY/IMMUNOLOGY: As mentioned above. Meds/Allergies Home Medications and Allergies Home Medications Medication Instructions Recorded Confirmed Last Taken Type albuterol sulfate See Rx Instructions .ROUTE .COMPLEX 05/03/20 05/03/20 Unknown History azelastine-fluticasone See Rx Instructions .ROUTE .COMPLEX 05/03/20 05/03/20 05/03/20 History budesonide-formoterol [Symbicort] See Rx Instructions .ROUTE .COMPLEX 05/03/20 05/03/20 05/03/20 History cyclobenzaprine 10 mg PO TID PRN 05/03/20 05/03/20 Unknown History cyclosporine [Restasis] See Rx Instructions .ROUTE .COMPLEX 05/03/20 05/03/20 05/03/20 History hydrocodone-acetaminophen 1 tab PO Q6H PRN 05/03/20 05/03/20 Unknown History hydroxychloroquine 200 mg PO BID 05/03/20 05/03/20 05/03/20 History lisinopril-hydrochlorothiazide 1 tab PO DAILY 05/03/20 05/03/20 05/03/20 History loratadine 10 mg PO DAILY 05/03/20 05/03/20 05/03/20 History montelukast 10 mg PO DAILY 05/03/20 05/03/20 05/02/20 History naproxen 500 mg PO BID 05/03/20 05/03/20 05/03/20 History prednisone 5 mg PO DAILY 05/03/20 05/03/20 05/03/20 History tofacitinib [Xeljanz XR] 11 mg PO DAILY 05/03/20 05/03/20 05/03/20 History venlafaxine 100 mg PO DAILY 05/03/20 05/03/20 05/03/20 History Allergies Allergy/AdvReac Type Severity Reaction Status Date / Time etanercept [From Enbrel] Allergy ADR-Agitate Verified 05/03/20 15:27 d Current Medications Current Medications Generic Name Dose Route Start Last Admin Trade Name Freq PRN Reason Stop Dose Admin Hydrocodone Bitart/Acetaminophen 1 tab 05/03/20 18:12 05/04/20 01:03 [place] 5-325 Mg PO 1 tab Q4H PRN Administration MODERATE TO SEVERE PAIN Albuterol Sulfate 1 puff 05/03/20 18:12 05/04/20 06:09 Ventolin INHALATION Not Given Q4H FABIENNE Hydromorphone HCl 2 mg 05/04/20 01:36 05/04/20 05:12 Dilaudid Inj IVP 2 mg Q4H PRN Administration pain Sodium Chloride 1,000 mls @ 100 mls/hr 05/03/20 14:15 05/04/20 01:39 Sodium Chloride 0.9% IV Not Given .Q10H FABIENNE Dopamine HCl/Dextrose 400 mg in 250 mls @ 19.476 mls/hr 05/03/20 15:15 05/04/20 05:12 Intropin Drip IV 12.5 mcg/kg/min CONT FABIENNE 48.7 mls/hr Administration Protocol 5 MCG/KG/MIN Sodium Chloride 1,000 mls @ 100 mls/hr 05/03/20 18:12 05/04/20 03:29 Sodium Chloride 0.9% IV 100 mls/hr .Q10H FABIENNE Administration Fluticasone/Salmeterol 1 puff 05/03/20 20:00 05/03/20 20:23 Advair Diskus 500-50 INHALATION 1 puff BID.RESPIRATORY FABIENNE Administration PFSH Acute PFSH: Medical History (Updated 05/04/20 @ 08:19 by Talib Herndon MD) Abdominal aortic aneurysm Clinically seems to be stable. COPD (chronic obstructive pulmonary disease) Depression DJD (degenerative joint disease) Hypertension Rheumatoid arthritis Symptomatic bradycardia Tobacco dependency Family History Other CAD (coronary artery disease) Social History Smoking and tobacco status: current some day smoker Alcohol intake: current Alcohol intake frequency: 0-2 Drinks per Day Substance/Drug Use: never Vitals/I&O/Wt Last Vital Signs Temp 98.4 F 05/03/20 18:15 Pulse 49 L 05/04/20 04:00 Resp 24 H 05/04/20 04:00 BP 155/67 05/04/20 04:00 Pulse Ox 93 05/04/20 04:00 05/03/20 05/04/20 05/04/20 22:59 06:59 14:59 Intake Total 250 / 250 1225.084 / 1475.084 Balance 250 / 250 1225.084 / 1475.084 Weight last 48 hrs Weight 229 lb Physical Exam Narrative: EXAM NARRATIVE: GENERAL: The patient is alert and oriented times three. Not in any acute distress. HEENT: No significant pallor, icterus or lymphadenopathy. The pupils are reactant to light. Oral cavity: There are no mucous membrane lesions. Funduscopic examination: Fundus is not visualized NECK: Trachea appears to be central. No masses noted. No JVD or thyromegaly appreciated. No carotid bruit. RESPIRATORY: Breath sounds are heard bilaterally with no rales or rhonchi. BREASTS: Deferred. HEART: Heart sounds are normal with no S3 or S4. No significant murmurs. ABDOMEN: No vessel pulsations or distention. No tenderness. No organomegaly appreciated. No abdominal bruit. Bowel sounds are normally heard. : Deferred. RECTAL: Deferred. LYMPHATIC: No lymphadenopathy noted in the neck or groin. EXTREMITIES: No significant edema or cyanosis. MUSCULOSKELETAL: No acute joint deformities or swelling SKIN: There are no significant scars or skin rash noted. NEUROPSYCHIATRIC: The patient is alert and oriented x3. Appears to be in a good mood. The higher functions are grossly within normal limits. No tremors or rigidity noted. Data Labs: Other Labs: Laboratory Last Values WBC 10.1 10^3/uL (4.0 -10.0) H 05/04/20 03:38 RBC 4.15 10^6/uL (4.1 -5.3) 05/04/20 03:38 Hgb 13.7 g/dL (11.7-1 6.6) 05/04/20 03:38 Hct 40.1 % (42.0-52.0 ) L 05/04/20 03:38 MCV 96.6 fL (80-94) H 05/04/20 03:38 MCH 33.0 pg (28.0-34. 0) 05/04/20 03:38 MCHC 34.2 g/dL (30.0-3 6.0) 05/04/20 03:38 RDW 12.1 % (12.1-15.1 ) 05/04/20 03:38 Plt Count 281 10^3/cmm (130 -400) 05/04/20 03:38 MPV 10.4 fL (7.4-10.4 ) 05/04/20 03:38 Neut % (Auto) 74.4 % 05/04/20 03:38 Lymph % (Auto) 8.2 % 05/04/20 03:38 [place] % (Auto) 15.7 % 05/04/20 03:38 Eos % (Auto) 0.9 % 05/04/20 03:38 Baso % (Auto) 0.4 % 05/04/20 03:38 Neut # (Auto) 7.51 10^3/uL (1.8 -7.7) 05/04/20 03:38 Lymph # (Auto) 0.8 10^3/uL (0.8- 4.8) 05/04/20 03:38 [place] # (Auto) 1.6 10^3/uL (0.2- 0.9) H 05/04/20 03:38 Eos # (Auto) 0.1 10^3/uL (0.0- 0.8) 05/04/20 03:38 Baso # (Auto) 0.0 10^3/uL (0.0- 0.1) 05/04/20 03:38 Nucleated RBC % (a uto) 0 % 05/04/20 03:38 Nucleated RBCs # 0.0 /100WBC 05/04/20 03:38 PT 13.00 SECONDS (12 .1-14.9) 05/03/20 14:32 INR 0.96 (0.8-1.2) 05/03/20 14:32 APTT 25.2 SECONDS (23. 9-36.7) 05/03/20 14:32 Sodium 137 mmol/L (136-1 45) 05/04/20 03:38 Potassium 4.0 mmol/L (3.5-5 .1) 05/04/20 03:38 Chloride 104 mmol/L (98-10 7) 05/04/20 03:38 Carbon Dioxide 24 mmol/L (22-29) 05/04/20 03:38 Anion Gap 13.0 (5-19) 05/04/20 03:38 BUN 23 mg/dL (8-23) 05/04/20 03:38 Creatinine 1.1 mg/dL (0.7-1. 2) 05/04/20 03:38 GFR Calculation 67.0 mL/min (90-1 30) L 05/04/20 03:38 Glucose 150 mg/dL (65-115 ) H 05/04/20 03:38 Calculated Osmolal ity 284 mOsm/kg (285- 295) L 05/04/20 03:38 Calcium 8.9 mg/dL (8.5-10 .5) 05/04/20 03:38 Magnesium 2.0 mg/dL (1.7-2. 3) 05/03/20 14:32 Total Bilirubin 0.5 mg/dL (0.15-1 .2) 05/03/20 14:32 AST 57 U/L (0-40) H 05/03/20 14:32 ALT 32 U/L (0-41) 05/03/20 14:32 Alkaline Phosphata se 60 IU/L (40-130) 05/03/20 14:32 Troponin T Baselin e 14 ng/L (0-15) 05/03/20 14:32 Troponin T 120 Min janes 16.38 ng/L (0-15) H 05/03/20 16:47 Delta Troponin T 2.38 ABS# (0-10) 05/03/20 16:47 Troponin T Hi Sens 6Hr 28.62 ng/L (0-15) H 05/03/20 20:26 Troponin T Hi Sens 6Hr Delta 14.62 ng/L (0-12) H* 05/03/20 20:26 Total Protein 6.9 g/dL (6.6-8.7 ) 05/03/20 14:32 Albumin 4.4 g/dL (3.5-5.2 ) 05/03/20 14:32 Globulin 2.5 g/dL (1.3-4.6 ) 05/03/20 14:32 TSH 0.84 uIU/mL (0.27 -4.20) 05/03/20 14:32 Free T4 0.95 ng/dL (0.82- 1.77) 05/03/20 14:32 Urine Color Yellow (Yellow) 05/03/20 14:44 Urine Appearance Clear (CLEAR) 05/03/20 14:44 Urine pH 5 (5-7) 05/03/20 14:44 Ur Specific Gravit y 1.020 (1.005-1.0 30) 05/03/20 14:44 Urine Protein Neg (Negative) 05/03/20 14:44 Urine Glucose (UA) Norm (Normal) 05/03/20 14:44 Urine Ketones Negative (Negati ve) 05/03/20 14:44 Urine Blood Neg (Negative) 05/03/20 14:44 Urine Nitrate Negative (Negati ve) 05/03/20 14:44 Urine Bilirubin Neg (NEGATIVE) 05/03/20 14:44 Urine Urobilinogen 1 mg/dL (Negative ) H 05/03/20 14:44 Ur Leukocyte Maria D ase Negative (Negati ve) 05/03/20 14:44 Urine RBC 0-4 /hpf (0-2) H 05/03/20 14:44 Urine WBC None /hpf (0-5) 05/03/20 14:44 Ur Squamous Epith Cells None (0-5) 05/03/20 14:44 Amorphous Sediment Not Reportable 05/03/20 14:44 Urine Bacteria None (NONE) 05/03/20 14:44 A&P Assessment and plan (1) Mobitz (type) II atrioventricular block: Patient has intermittent second-degree heart block. Heart rate seems to be speeding up with IV dopamine. If he does not have significant coronary artery disease to explain the heart block, may require a permanent pacer implantation, for further management of his condition. A final decision on this will be made after the cardiac authorization this morning. Status: Acute (2) Symptomatic bradycardia: Patient requires a permanent pacemaker mentation, if there is no reversible cause for the bradycardia. Status: Acute (3) Hypertension: Currently the blood pressure is elevated and most likely from the dopamine. Status: Acute Qualifiers: Hypertension type: essential hypertension Qualified Code(s): I10 - Essential (primary) hypertension (4) Abdominal aortic aneurysm: Status: Acute Qualifiers: Presence of rupture: without rupture Qualified Code(s): I71.4 - Abdominal aortic aneurysm, without rupture Additional A&P Information After the cardiac catheterization, the final decision will be made. Addendum The cardiac authorization was performed which revealed no significant coronary artery disease, to explain the heart block. At this point, we may go ahead with the permanent pacer implantation. I discussed with the patient and his about the risk and benefits of the procedure. The risk of bleeding, hematoma, vascular injury, pneumothorax, myocardial perforation and other concomitant complications were explained in detail with the patient and his which he understood well and consented to proceed Coding Level of Care Code Acute Transportation Department Head for g Fwd Diagnoses Mobitz (type) II atrioventricular block I44.1 Symptomatic bradycardia R00.1 Hypertension I10 Hypertension type: essential hypertension Abdominal aortic aneurysm I71.4 Presence of rupture: without rupture
[2020-05-04 07:45] LABS: Chol HDL Ratio 2.81 mg/dL (1.0-5.00); Cholesterol 205 mg/dL (0-200); HDL Cholesterol 73 mg/dL (60-100); LDL Cholesterol Calculated 118 mg/dL (50-129); LDL HDL Ratio 1.62 RATIO (0.00-3.22); Triglycerides 68 mg/dL (0-150)
--- NOTE | 2020-05-04 08:05 | W.PM.OPSUD ---
Surgery/Procedure H&P Update DATE OF PROCEDURE: May 04, 2020 DATE H&P PERFORMED: 05/03/20 H&P UPDATE INFORMATION: I have reviewed H&P completed within last 30 days, I have examined patient prior to procedure and No changes to prior documentation PREOP DIAGNOSIS: [place]ree Mobitz type II heart block with symptomatic bradycardia and chest pain PLANNED PROCEDURE: Operation Date: 05/04/20 07:00 Proposed Procedures p Cardiac Catheterization(Left) - Clarke Harris MD PATIENT REASSESSED PRIOR TO SEDATION, WITH NO CHANGE NOTED: Yes PHYSICAL EXAM: alert, oriented x 3, clear to auscultation bilaterally and regular rate & rhythm AIRWAY EVAL/ANESTHESIA PLAN: ASA II, Risks, benefits & alternatives of sedation and/or procedure discussed and Patient agrees to continue as planned
--- NOTE | 2020-05-04 08:19 | W.PM.OPSUD ---
Surgery/Procedure H&P Update DATE OF PROCEDURE: May 04, 2020 DATE H&P PERFORMED: 05/04/20 PREOP DIAGNOSIS: [place]ree Mobitz type II heart block with symptomatic bradycardia and chest pain PLANNED PROCEDURE: Operation Date: 05/04/20 07:00 Proposed Procedures p Cardiac Catheterization(Left) - Clarke Harris MD Permanent pacer implantation-Dr. CARA Herndon PATIENT REASSESSED PRIOR TO SEDATION, WITH NO CHANGE NOTED: Yes PHYSICAL EXAM: alert, oriented x 3 and clear to auscultation bilaterally AIRWAY EVAL/ANESTHESIA PLAN: normal airway, ASA II, Monitored Anesthesia, Local Anesthesia, Risks, benefits & alternatives of sedation and/or procedure discussed and Patient agrees to continue as planned
--- NOTE | 2020-05-04 10:07 | PM.OP ---
Operative Report Date of procedure: May 04, 2020 Pre-op Diagnosis: Hardigree Mobitz type II heart block with symptomatic bradycardia and chest pain Procedure: LOCATION: Cardiac catheterization lab PREOPERATIVE DIAGNOSES: Second-degree heart block, symptomatic bradycardia. POSTOPERATIVE DIAGNOSES: Same. COMPLICATIONS: None. ESTIMATED BLOOD LOSS: Around less than 5 milliliters. BRIEF HISTORY: This is a 64-year-old white male with a history of hypertension, presented with complaints of weakness/lethargy/near syncopal episodes, for the last 2 months. He was found to be in second-degree type II AV block with heart rate in the upper 30s and low 40s. There was found to be no reversible cause for the bradycardia. He also was complaining of some chest pain. He had a cardiac catheterization this morning which revealed no significant obstructive coronary artery disease. For further management of his condition, a dual-chamber permanent pacemaker plantation was requested. Dual-chamber pacemaker is needed for AV synchrony and symptom relief. The procedure was explained to the patient in detail with the risks and benefits. The risks of bleeding, hematoma, vascular injury, infection, pneumothorax, myocardial perforation and other concomitant complications were explained in detail, which the patient understood well and consented to proceed. PROCEDURE DESCRIPTION: The patient was brought to the Cardiac Catheterization Lab. The left and the right side of the neck and the subclavian area were cleaned and draped in a sterile fashion. 1% Xylocaine was used as the local anesthetic agent. A left subclavian venous access was obtained using a micropuncture needle system. Under venographic guidance, the patient was injected with 20 milliliters of Omnipaque through the left antecubital vein. A two-inch long incision was made 2.0 centimeters below the midclavicular region. By sharp and blunt dissection, a pacemaker pocket was made. A second venous access was obtained using another micropuncture needle system. Over the first guidewire, a 7-Lithuanian venous sheath with dilator was advanced. The venous dilator and the guidewire were taken out. A screw-in ventricular lead was advanced through the venous sheath and was positioned towards the right ventricle. Under fluoroscopy guidance, the ventricular lead was positioned toward the right ventricular apex. Good pacing and sensing thresholds were obtained. The lead was secured to the endocardium by advancing the helix. The stability of the lead was tested by gentle twisting movements and also by asking the patient to take some deep breaths and cough. The venous sheath was peeled off, at this time. The lead was secured to the pectoralis fascia, by suturing with 1-0 Surgilon. Over the second guidewire, another 7-Lithuanian venous sheath with dilator was advanced. The dilator and the guidewire were taken out. Under fluoroscopy guidance, an atrial lead (Medtronic), was advanced and positioned toward the right atrium. The lead was positioned in the right atrial appendage. Good pacing and sensing thresholds were obtained. The lead was secured to the endocardium by advancing the helix. Stability of the lead was tested by gentle twisting movements and also by asking the patient to take some deep breaths and cough. The venous sheath was peeled off, at this time. The lead was secured to the pectoralis fascia by suturing with 0-Surgilon. The pacemaker pocket was copiously irrigated with vancomycin solution. Complete hemostasis was achieved. Sponge counts were confirmed. The leads were attached to a Medtronic generator. The leads were positioned behind the generator and the generator was attached to the pectoralis fascia by suturing with 0-Surgilon. The pocket was closed in layers. Skin was approximated using 4-0 Vicryl. IMPLANTED DEVICES: ATRIAL LEAD: Model number: 50 76/52 Serial number: [id number] Make: Medtronic VENTRICULAR LEAD: Model number: 50 76/58 Serial number: [id number] Make: Medtronic GENERATOR Brand: Asa XT DR MRI SureScan Model number: [id number] Serial number: [id number] Make: Medtronic IMPLANTATION DATA: With the pacing system analyzer, the R wave sensing was 7.1 millivolts with a lead impedance of 836 and a pacing threshold was 0.4 volts at 0.5 milliseconds. In the atrium, the sensing was 4.8 millivolts with a lead impedance of 494 ohms and a pacing threshold was 0.3 volts at 0.5 milliseconds. Through the device, the R-wave sensing was 8.9 millivolts with a lead impedance of 874 and a pacing threshold was 0.5 volts at 0.4 milliseconds. The atrial sensing was 4.8 millivolts with a lead impedance of 513 ohms and a pacing threshold of 0.5 volts at 0.4 milliseconds. The pacemaker was set for DDDR mode with upper rate of 130 and a lower rate of 60. A pressure dressing was applied over the pacemaker site. The patient was transferred to the Medical Floor in stable condition. A chest x-ray was ordered to confirm the lead position and also to rule out any pneumothorax.
--- NOTE | 2020-05-04 11:14 | PM.PN ---
Subjective Subjective: Interval history: Ar reports he is doing okay this morning. Nursing related that he has not been able to urinate after the procedure, and has approximately 1000 cc per bladder scan. He underwent an angiogram, as well as a pacemaker placement this morning. Medications: Reviewed: Yes Vitals/I&O/Wt Last Vital Signs Temp 98.4 F 05/03/20 18:15 Pulse 67 05/04/20 11:01 Resp 19 H 05/04/20 06:00 BP 163/71 05/04/20 06:00 Pulse Ox 99 05/04/20 11:01 05/03/20 05/04/20 05/04/20 22:59 06:59 14:59 Intake Total 250 / 250 1225.084 / 1475.084 Balance 250 / 250 1225.084 / 1475.084 Weight last 48 hrs Weight 103.873 kg Physical Exam Narrative: EXAM NARRATIVE: General exam no apparent distress Cardiovascular regular rate and rhythm 2/6 systolic murmur Lungs clear no wheezing or crackles. Diminished breath sounds bilaterally. Abdomen is soft with positive bowel sounds. No obvious organomegaly Extremities no cyanosis clubbing or edema, cap refill brisk, pulses palpable Data : 05/04/20 03:38 05/04/20 03:38 A&P Assessment and plan (1) Mobitz (type) II atrioventricular block: Significant bradycardia, with what appears to be a Mobitz type II block. Placed on dopamine in the emergency department. TSH was checked and normal Appreciate cardiology consultation Magnesium and potassium levels have been checked and normal Pacemaker placed this morning after angiogram. Status: Acute (2) Dizziness: Secondary to above, resolved Status: Acute (3) Chest pain: Angiogram demonstrated no significant flow-limiting lesions Echocardiogram, normal EF Status: Acute Qualifiers: Chest pain type: precordial pain Qualified Code(s): R07.2 - Precordial pain (4) Tobacco dependency: Encourage abstinence Status: Acute (5) Urinary retention: Place Gomez. Start on Flomax Status: Acute Additional A&P Information History of aortic aneurysm, which patient reports is abdominal. Will request records. Hypertension. Likely restart meds tomorrow Rheumatoid arthritis, holding meds currently Probable COPD. Albuterol. Full code Heparin for DVT prophylaxis Attestations Medical Necessity Statement*: Needs continued hospitalization for close monitoring secondary to sick sinus syndrome requiring pacemaker placement. Coding Level of Care Code Acute [employer] Supervisor for g Fwd Diagnoses Mobitz (type) II atrioventricular block I44.1 Dizziness R42 Chest pain R07.2 Chest pain type: precordial pain Tobacco dependency F17.200 Urinary retention R33.9
--- NOTE | 2020-05-04 13:02 | PC.NURSE ---
RETURN FROM [facility] Report given to receiving nurse by DIMITRY Singleton from quality control lab tech. Patient had left heart cath and was reported that arteries were normal. Permanent dual chamber pacemaker was placed with a rate set at 60. Patient returned and it appeared that pacing spike was capturing too close to the QRS. Patient was also hypotensive, but asymptomatic. Mani from quality control lab tech was contacted about concerns and sent pacemaker assistance representative to ICU to check pacemaker. Pacemaker was checked and ventricular delay was lengthened. An additional chest xray will be done to ensure correct placement of leads, but concerns were addressed and assistance representative stated that everything is correct with pacemaker after settings were checked.
--- NOTE | 2020-05-04 13:13 | PC.CHAP ---
Pastoral Care Encounter/Spiritual Assessment Type of Contact [] Declined dialysis technician visit [] Patient/Family/Request visit [] Outpatient visit [] Follow-up visit [] Physician referral [] Code/Alert [x] Routine visit [] Staff referral [] Actively dying [] Patient sleeping [] Family support [] [] Out of room [] Palliative care [] [x] Receiving care in room [] Pre-surgical visit [] Trauma [] Long length of stay [x] ICU visit [] Other: Relational/Emotional Strength [] Patient feels connected with others/family/visitors/staff [] Distress [] Loneliness/isolation [] Abandonment Spirituality of Patient [] Person of Ricarda [] Attends Yazidism of their Ricarda [] Believes in Prayer [] Reads Bible or Scientology materials [] There are Spiritual issues to be addressed [employer] Interventions [] Prayer [] Active listening [] Non-anxious presence [] Spiritual/emotional support [] Crisis/trauma care [] Spiritual counseling [] Bereavement support [] Provided bereavement packet [] Provided Bible/devotional materials [] Provided toy/stuffed animal, coloring book to patient or family member [] Provided Communion [] Anointing/[place] [] Salvation [] Completed spiritual assessment [] Other: Impact on Illness or Injury [] Angry [] Fearful [] Anxious [] Often cries [] Exhaustion [] Unable to work [] Unable to attend druze [] Unable to walk/stand [] Unable to read [] Unable to drive [] Unable to eat/drink [] Unable to sleep [] Unable to be with family [] Patient intubated [] Other: Summary Patient was being attended to by a group of nursing staff at the time of dialysis technician visit. Supervisor [employer] referred patient for a follow up visit by the [facility] dialysis technician. Visit attempted by Supervisor [employer] Kuldip Moran. Time spent with patient 3 minutes
[2020-05-04 13:15] LABS: Add Urine Microscopic? NO
--- NOTE | 2020-05-04 13:15 | XR_ITS ---
WS: [id number] EXAM: AP CHEST: PORTABLE UPRIGHT DATE OF EXAM: 05/04/2020, 1318 hours COMPARISON: Chest x-ray from 05/03/2020 HISTORY: Patient is 64 years old with pacemaker placement. FINDINGS: The cardiac silhouette is stable and within normal limits. The mediastinal contours show interval placement of a left subclavian dual-lead pacer. One lead ending in the right atrium and the second ov erlying the right ventricle.. The pulmonary vascularity is normal. The lungs are clear of infiltra te. There is no effusion or pneumothorax. Scattered degenerative changes are seen in the spine. XR/XR chest 1V portable [id number] IMPRESSION: New left subclavian dual lead pacer in place. No pneumothorax. No acute pulmona ry disease.
--- NOTE | 2020-05-04 13:19 | PC.NURSE ---
BLADDER SCAN Patient stated that he needed to urinate. Patient was only able to urinate less than 25 mL of urine and complained of burning and bladder fullness. Bladder scan performed and showed that patient had approximately >[address] Sánchez notified and gave order to insert indwelling urinary catheter. 825 mL drained on insertion. Patient voiced relief.
[2020-05-04 13:27] LABS: Bilirubin Urine Neg (NEGATIVE); Blood Urine Neg (Negative); Glucose Urine UA Norm (Normal); Ketones Urine Negative (Negative); Leukocyte Esterase Urine Negative (Negative); Nitrate Urine Negative (Negative); Protein Urine Neg (Negative); Urine Appearance Clear (CLEAR); Urine Color Yellow (Yellow); Urobilinogen Urine Neg (Negative); pH Urine 5 (5-7)
--- NOTE | 2020-05-04 14:18 | PC.NURSE ---
TR BAND REMOVAL Patients TR band removed. 17 mL of air removed from bulb. 2x2 placed over site with transparent dressing covering. Site was not oozing or draining. Patient educated and told to tell nurse if blood visible through dressing.
--- NOTE | 2020-05-04 17:18 | PC.RESP ---
SMOKING CESSATION AND PULMONARY REHAB INFORMATION SENT TO PATIENT.
--- NOTE | 2020-05-04 17:40 | PM.PN ---
Subjective Subjective: Interval history: Status post coronary angiogram which showed no significant stenosis. Status post permanent pacemaker placement Medications: Reviewed: Yes Vitals/I&O/Wt Last Vital Signs Temp 97.2 F L 05/04/20 12:10 Pulse 69 05/04/20 16:00 Resp 17 05/04/20 16:00 BP 113/57 05/04/20 13:00 Pulse Ox 98 05/04/20 16:00 05/04/20 05/04/20 05/04/20 06:59 14:59 22:59 Intake Total 1225.084 / 1475.084 240 / 240 Output Total 850 / 850 Balance 1225.084 / 1475.084 -610 / -610 Weight last 48 hrs Weight 229 lb Physical Exam Narrative: EXAM NARRATIVE: GENERAL: Patient is alert, awake and oriented x3. NECK: No jugular vein distension. HEENT: No cyanosis. No icterus. No pallor. HEART: Regularly irregular S1 and S2. No murmur, rub or gallop. LUNGS: Clear to auscultate bilaterally. ABDOMEN: Soft, nontender and nondistended. Positive bowel sounds. No guarding, rebound or tenderness. CENTRAL NERVOUS SYSTEM: Grossly nonfocal. EXTREMITIES: Lower extremities without edema bilaterally. Const: COMMON NORMALS: alert Resp: COMMON NORMALS: clear to auscultation bilaterally AUSCULTATION: clear to auscultation bilaterally Neuro: SENSORIUM/ORIENTATION: Yes alert Urinary Catheter Management^: Gomez: Cath Placed During This Visit: yes Urinary Catheter Date of Insertion: 05/04/20 Urinary Catheter Time of Insertion: 11:35 Data : 05/04/20 03:38 05/04/20 03:38 A&P Assessment and plan (1) Mobitz (type) II atrioventricular block: Status post permanent pacemaker placement. Post pacemaker care as usual as per Dr. Herndon protocol Status: Acute (2) Symptomatic bradycardia: Status post permanent pacemaker placement for significant symptomatic Status: Acute (3) Hypertension: Currently stable and within normal limit. Status: Acute Qualifiers: Hypertension type: essential hypertension Qualified Code(s): I10 - Essential (primary) hypertension (4) Abdominal aortic aneurysm: Continue to follow-up with your surgeon. Still in moderate category. Status: Acute Qualifiers: Presence of rupture: without rupture Qualified Code(s): I71.4 - Abdominal aortic aneurysm, without rupture Additional A&P Information After the cardiac catheterization, the final decision will be made. Addendum The cardiac authorization was performed which revealed no significant coronary artery disease, to explain the heart block. At this point, we may go ahead with the permanent pacer implantation. I discussed with the patient and his about the risk and benefits of the procedure. The risk of bleeding, hematoma, vascular injury, pneumothorax, myocardial perforation and other concomitant complications were explained in detail with the patient and his which he understood well and consented to proceed Attestations Medical Necessity Statement*: Patient require continuation hospitalization for above defined care. I am expecting his stay to cross more than 2 midnight Coding Level of Care Code Established Pt Acute Sonogram Technician for Chg Fwd Patient Type Established History Expanded Problem Focused Exam Expanded Problem Focused Medical Decision Making Moderate Complexity Diagnoses Mobitz (type) II atrioventricular block I44.1 Symptomatic bradycardia R00.1 Hypertension I10 Hypertension type: essential hypertension Abdominal aortic aneurysm I71.4 Presence of rupture: without rupture
[2020-05-04] MEDS: cyclobenzaprine 10 mg Tablet PO (18:01)
--- NOTE | 2020-05-04 18:33 | PC.NURSE ---
SHIFT SUMMARY See RETURN FROM [employer] NOTE for pacemaker concerns. Patient has been sinus rhythm for most of day with ventricular pacing at times. Patient heart rate has been primarily in the 70's, oxygen of 99% on room air, and blood pressure of 113/67. Patient has complained of minor pain today and has been given 2 pain pills. Patient requested flexiril to help him sleep and was given that at 1801. Patient has had 1300 mL UO this shift. Patient had jo placed due to urinary retention. Patient is on bedrest for 24 hours and pressure dressing to left chest is still clean, dry, and intact. Plan is to discharge tomorrow if all goes as planned.
--- NOTE | 2020-05-04 19:01 | PM.PN ---
Subjective Subjective: Interval history: Status post coronary angiogram which showed no significant stenosis. Status post permanent pacemaker placement Medications: Reviewed: Yes Vitals/I&O/Wt Last Vital Signs Temp 97.2 F L 05/04/20 12:10 Pulse 69 05/04/20 16:00 Resp 17 05/04/20 16:00 BP 113/57 05/04/20 13:00 Pulse Ox 98 05/04/20 16:00 05/04/20 05/04/20 05/04/20 06:59 14:59 22:59 Intake Total 1225.084 / 1475.084 240 / 240 900 / 1140 Output Total 850 / 850 450 / 1300 Balance 1225.084 / 1475.084 -610 / -610 450 / -160 Weight last 48 hrs Weight 229 lb Physical Exam Narrative: EXAM NARRATIVE: GENERAL: Patient is alert, awake and oriented x3. NECK: No jugular vein distension. HEENT: No cyanosis. No icterus. No pallor. HEART: Regular S1 and S2. No murmur, rub or gallop. LUNGS: Clear to auscultate bilaterally. ABDOMEN: Soft, nontender and nondistended. Positive bowel sounds. No guarding, rebound or tenderness. CENTRAL NERVOUS SYSTEM: Grossly nonfocal. EXTREMITIES: Lower extremities without edema bilaterally. Const: COMMON NORMALS: alert Resp: COMMON NORMALS: clear to auscultation bilaterally AUSCULTATION: clear to auscultation bilaterally Neuro: SENSORIUM/ORIENTATION: Yes alert Urinary Catheter Management^: Gomez: Cath Placed During This Visit: yes Urinary Catheter Date of Insertion: 05/04/20 Urinary Catheter Time of Insertion: 11:35 Data : 05/04/20 03:38 05/04/20 03:38 A&P Assessment and plan (1) Mobitz (type) II atrioventricular block: Status post permanent pacemaker placement. Post pacemaker care as usual as per Dr. Herndon protocol Status: Acute (2) Symptomatic bradycardia: Status post permanent pacemaker placement for significant symptomatic Status: Acute (3) Hypertension: Currently stable and within normal limit. Lisinopril will be discontinued due to cough we will switch him to losartan. Status: Acute Qualifiers: Hypertension type: essential hypertension Qualified Code(s): I10 - Essential (primary) hypertension (4) Abdominal aortic aneurysm: Continue to follow-up with your surgeon. Still in moderate category. Status: Acute Qualifiers: Presence of rupture: without rupture Qualified Code(s): I71.4 - Abdominal aortic aneurysm, without rupture Additional A&P Information After the cardiac catheterization, the final decision will be made. Addendum The cardiac authorization was performed which revealed no significant coronary artery disease, to explain the heart block. At this point, we may go ahead with the permanent pacer implantation. I discussed with the patient and his about the risk and benefits of the procedure. The risk of bleeding, hematoma, vascular injury, pneumothorax, myocardial perforation and other concomitant complications were explained in detail with the patient and his which he understood well and consented to proceed Attestations Medical Necessity Statement*: Require continuation hospitalization overnight for post pacemaker Coding Level of Care Code Established Pt Acute Digital Developer for Chg Fwd Patient Type Established History Expanded Problem Focused Exam Expanded Problem Focused Medical Decision Making Moderate Complexity Diagnoses Mobitz (type) II atrioventricular block I44.1 Symptomatic bradycardia R00.1 Hypertension I10 Hypertension type: essential hypertension Abdominal aortic aneurysm I71.4 Presence of rupture: without rupture
[2020-05-04] MEDS: tamsulosin 0.4 mg Capsule PO (21:01)
[2020-05-05] VITALS (15 sets, daily range): BP systolic 109–145; BP diastolic 58–77; PULSE 64–97; RESP 13–29; TEMP 36.9–37.1; O2SAT 93–98
[2020-05-05 04:06] LABS: Basophils % 0.3 %; Eosinophils # 0.1 10^3/uL (0.0-0.8); Eosinophils % 1.8 %; Hemoglobin 13.2 g/dL (11.7-16.6); Mean Corpuscular Hemoglobin 32.4 pg (28.0-34.0); Mean Corpuscular Volume 98.3 fL (80-94); Mean Platelet Volume 10.2 fL (7.4-10.4); Monocytes # 0.7 10^3/uL (0.2-0.9); Neutrophils # 4.82 10^3/uL (1.8-7.7); Neutrophils % 71.8 %; Nucleated Red Blood Cells % 0 %; Platelet Count 218 10^3/cmm (130-400); Red Blood Count 4.07 10^6/uL (4.1-5.3); Red Cell Distribution Width 12.6 % (12.1-15.1); White Blood Count 6.7 10^3/uL (4.0-10.0)
[2020-05-05 04:32] LABS: Anion Gap 13.1 (5-19); Blood Urea Nitrogen 16 mg/dL (8-23); Calcium 8.7 mg/dL (8.5-10.5); Carbon Dioxide 25 mmol/L (22-29); Chloride 104 mmol/L (98-107); Glomerular Filtration Rate 96.7 mL/min (90-130); Glucose 105 mg/dL (65-115); Osmolality Calculated 283 mOsm/kg (285-295); Potassium 4.1 mmol/L (3.5-5.1); Sodium 138 mmol/L (136-145)
[2020-05-05] MEDS: acetaminophen 325 mg Tablet 650 MG PO (05:13)
[2020-05-05] MEDS: predniSONE 5 mg Tablet PO (08:29)
[2020-05-05] MEDS: montelukast sodium 10 mg Tablet PO (08:29)
[2020-05-05] MEDS: sennosides-docusate Tablet 1 TAB PO (08:29)
[2020-05-05] MEDS: hydroCHLOROthiazide 25 mg Tablet PO (08:29)
[2020-05-05] MEDS: losartan 50 mg Tablet 25 MG PO (08:30)
[2020-05-05] MEDS: loratadine 10 mg Tablet PO (08:36)
--- NOTE | 2020-05-05 11:47 | P.PN_ITS ---
Subjective Subjective: Interval history: Patient is status post day 1 of his pacemaker placement for Mobitz type II heart block. He is feeling well. Notes of chest discomfort, shortness of breath or palpitations. His procedural site is normal. No redness around it. Telemetry monitoring did not show any issues with pacemaker overnight. Coronary angiogram did not show significant coronary artery disease. Medications: Reviewed: Yes Vitals/I&O/Wt Last Vital Signs Temp 98.8 F 05/05/20 08:00 Pulse 84 05/05/20 11:00 Resp 21 H 05/05/20 11:00 BP 133/58 05/05/20 11:00 Pulse Ox 95 05/05/20 11:00 05/04/20 05/05/20 05/05/20 22:59 06:59 14:59 Intake Total 950 / 1190 50 / 1240 890 / 890 Output Total 450 / 1300 1900 / 3200 560 / 560 Balance 500 / -110 -1850 / -1960 330 / 330 Weight last 48 hrs Weight 229 lb Physical Exam Narrative: EXAM NARRATIVE: GENERAL: Patient is alert, awake and oriented x3. [] NECK: No jugular vein distension. [] HEENT: No cyanosis. No icterus. No pallor. [] HEART: Regular S1 and S2. No murmur, rub or gallop. [] LUNGS: Clear to auscultate bilaterally. [] ABDOMEN: Soft, nontender and nondistended. Positive bowel sounds. No guarding, rebound or tenderness. [] CENTRAL NERVOUS SYSTEM: Grossly nonfocal. [] EXTREMITIES: Lower extremities with no edema bilaterally. Pulses palpable in the lower extremities, both dorsalis pedis and posterior tibial. [] Urinary Catheter Management^: Gomez: Cath Placed During This Visit: yes, but has since been removed by the nurse Reason for Continuing Indwelling Catheter: Accurate Measurement of Urinary Output in Critically Ill Patients Urinary Catheter Date of Insertion: 05/04/20 Urinary Catheter Time of Insertion: 11:35 Date Urinary Catheter Removed: 05/05/20 Time Urinary Catheter Discontinued: 08:59 Data : 05/05/20 03:32 05/05/20 03:32 A&P Assessment and plan (1) Mobitz (type) II atrioventricular block: Status: Acute (2) Hypertension: Status: Acute Qualifiers: Hypertension type: essential hypertension Qualified Code(s): I10 - Essential (primary) hypertension (3) Status post placement of cardiac pacemaker: Status: Acute Patient is doing well today. He can be discharged Keflex 500 mg q6 for 5 days Pacemaker clinic follow-up in 1 week Pacemaker and procedural site instructions given. Attestations Medical Necessity Statement*: Status post pacemaker placement Coding Level of Care Code Acute Fourdrinier Machine Operator for [facility] Fwd Diagnoses Mobitz (type) II atrioventricular block I44.1 Hypertension I10 Hypertension type: essential hypertension Status post placement of cardiac pacemaker Z95.0
--- NOTE | 2020-05-05 12:28 | PM.DCS ---
Discharge Providers Date of Admission: 05/03/20 15:20 Date of Discharge: May 05, 2020 Attending Provider at Admission: Brian Sánchez MD Attending Provider at Discharge: Brian Sánchez MD Primary Care Provider: NIKI Lamb Diagnoses at Discharge Discharge Diagnosis (1) Mobitz (type) II atrioventricular block: Status: Acute Problem details: Status post pacemaker placement (2) Symptomatic bradycardia: Status: Acute (3) Hypertension: Status: Acute Qualifiers: Hypertension type: essential hypertension Qualified Code(s): I10 - Essential (primary) hypertension (4) Abdominal aortic aneurysm: Status: Acute Problem details: Clinically seems to be stable. Qualifiers: Presence of rupture: without rupture Qualified Code(s): I71.4 - Abdominal aortic aneurysm, without rupture Reason for Visit Reason for Visit: heart problems Hospital Course Hospital Course: Roland is a 64-year-old white male who presents through the emergency department with dizziness, presyncope and found to be in a Mobitz type II heart block. Cardiology was consulted. They believed pacemaker was indicated following angiogram as he had some chest discomfort as well. Angiogram was performed, May 04 and no flow-limiting lesions were noted. Pacemaker was then placed. Postoperatively he had some urinary retention requiring catheter placement. Flomax was initiated. The following day the pacemaker was working well. He had no chest pain. There was no dizziness. Catheter was removed and he was able to urinate normally. It was thought he could be discharged home with follow-up with cardiology and his primary care provider. Physical Exam Narrative: EXAM NARRATIVE: General exam no apparent distress Cardiovascular regular in rhythm, surgical site left chest as well as angiogram site without evidence of infection or significant hematoma. Lungs clear Abdomen soft nontender with positive bowel sounds Extremities no cyanosis clubbing or edema Urinary Catheter Management^: Gomez: Cath Placed During This Visit: yes, but has since been removed by the nurse Reason for Continuing Indwelling Catheter: Accurate Measurement of Urinary Output in Critically Ill Patients Urinary Catheter Date of Insertion: 05/04/20 Urinary Catheter Time of Insertion: 11:35 Date Urinary Catheter Removed: 05/05/20 Time Urinary Catheter Discontinued: 08:59 Discharge Data Data Completed and Pending: Completed Studies During Hospitalization Category Date Time Status CXRP [XR chest 1V portable 60233] S tat Exams 05/04/20 13:15 Completed XR chest 1V dread ble 99344 Stat Exams 05/03/20 14:07 Completed CV echo complete* [id number] Routine Ultrasound 05/03/20 15:57 Completed Pending at discharge Category Date Time Status MEDICAL OFFICE TECHNICIAN request for service Routin e Exams 05/04/20 06:53 Taken Labs from last 24 hours 05/05/20 05/05/20 05/04/20 03:32 03:32 11:45 WBC 6.7 RBC 4.07 L Hgb 13.2 Hct 40.0 L MCV 98.3 H MCH 32.4 MCHC 33.0 RDW 12.6 Plt Count 218 MPV 10.2 Neut % (Auto) 71.8 Lymph % (Auto) 15.0 [place] % (Auto) 11.0 Eos % (Auto) 1.8 Baso % (Auto) 0.3 Neut # (Auto) 4.82 Lymph # (Auto) 1.0 [place] # (Auto) 0.7 Eos # (Auto) 0.1 Baso # (Auto) 0.0 Nucleated RBC % (a uto) 0 Nucleated RBCs # 0.0 Sodium 138 Potassium 4.1 Chloride 104 Carbon Dioxide 25 Anion Gap 13.1 BUN 16 Creatinine 0.8 GFR Calculation 96.7 Glucose 105 Calculated Osmolal ity 283 L Calcium 8.7 Urine Color Yellow Urine Appearance Clear Urine pH 5 Ur Specific Gravit y 1.010 Urine Protein Neg Urine Glucose (UA) Norm Urine Ketones Negative Urine Blood Neg Urine Nitrate Negative Urine Bilirubin Neg Urine Urobilinogen Neg Ur Leukocyte Maria D ase Negative Vitals: Last Vital Signs Temp 98.8 F 05/05/20 08:00 Pulse 84 05/05/20 11:00 Resp 21 H 05/05/20 11:00 BP 133/58 05/05/20 11:00 Pulse Ox 95 05/05/20 11:00 Discharge Plan Discharge Patient Disposition: Home Condition: Stable Prescriptions: New tamsulosin 0.4 mg Capsule 0.4 mg PO BEDTIME Qty: 30 RF: 0 cephalexin 500 mg Capsule 500 mg PO QID Qty: 20 RF: 0 Continued cyclobenzaprine 10 mg tablet 10 mg PO TID PRN (Reason: muscle spasms) RF: 0 prednisone 5 mg tablet 5 mg PO DAILY RF: 0 hydrocodone-acetaminophen 10-325 mg tablet 1 tab PO Q6H PRN (Reason: Pain) RF: 0 venlafaxine 100 mg tablet 100 mg PO DAILY RF: 0 lisinopril-hydrochlorothiazide 20-25 mg tablet 1 tab PO DAILY RF: 0 montelukast 10 mg tablet 10 mg PO DAILY RF: 0 hydroxychloroquine 200 mg tablet 200 mg PO BID RF: 0 albuterol sulfate 90 mcg/actuation HFA aerosol inhaler See Rx Instructions .ROUTE .COMPLEX RF: 0 loratadine 10 mg tablet 10 mg PO DAILY RF: 0 Restasis 0.05 % dropperette See Rx Instructions .ROUTE .COMPLEX RF: 0 Symbicort 160-4.5 mcg/actuation HFA aerosol inhaler See Rx Instructions .ROUTE .COMPLEX RF: 0 azelastine-fluticasone 137-50 mcg/spray spray,non-aerosol See Rx Instructions .ROUTE .COMPLEX RF: 0 Xeljanz XR 11 mg tablet extended release 24 hr 11 mg PO DAILY RF: 0 Discontinued naproxen 500 mg tablet 500 mg PO BID RF: 0 Discharge Orders: Discharge Order (Routine); Ordered 05/04/20 Ordered By: Talib Herndon Referrals: Talib Herndon MD [Physician] - 4-7 days Beverly Griffith FNP [Primary Care Provider] - 4-7 days Discharge Diet: Cardiac Discharge Activity: Limit activity as instructed Patient Instructions: Left Heart Catheterization (DC), Pacemaker (DC) Activity Restrictions/Additional Instructions: Minimize the movements of the left shoulder to 45 degrees. Avoid any weightbearing in the left elbow. Appointment with the [facility] with the nurse practitioner on next , for a wound check and pacemaker check. Appointment with me in the office in 3 weeks. Take the Keflex 500 mg p.o. every 6 hours for 5 days along with the multivitamins daily for 2 weeks. Discharge Attestations Time Spent in Discharge Care*: greater than 30 min Quality Metrics Clinical Quality Measures During this hospital stay, did patient experience: None Coding Level of Care Code Acute Curb Supervisor for g Fwd Diagnoses Mobitz (type) II atrioventricular block I44.1 Symptomatic bradycardia R00.1 Hypertension I10 Hypertension type: essential hypertension Abdominal aortic aneurysm I71.4 Presence of rupture: without rupture
== END 2020-05-05 13:41 | disposition home or self-care (01) | DRG 243 ==
LOC: ER 16:39 → ICU 17:03
PROVIDERS: Emergency Medicine; Internal Medicine Cardiovascular Disease; Admitting Provider Internal Medicine; PCP Nurse Practitioner Family; Visit Provider Internal Medicine
PROC: 4A023N7 Measurement of Cardiac Sampling and Pressure, Left Heart, Percutaneous Approach (ICD-10-PCS; principal; 2020-05-04 07:00)
PROC: 0JH606Z Insertion of Pacemaker, Dual Chamber into Chest Subcutaneous Tissue and Fascia, Open Approach (ICD-10-PCS; 2020-05-04 07:00)
DX: I44.1 Atrioventricular block, second degree (principal); I24.9 Acute ischemic heart disease, unspecified; J44.9 Chronic obstructive pulmonary disease, unspecified; F32.9 Major depressive disorder, single episode, unspecified; I10 Essential (primary) hypertension; M06.9 Rheumatoid arthritis, unspecified; F17.210 Nicotine dependence, cigarettes, uncomplicated; I71.4 Abdominal aortic aneurysm, without rupture; R33.9 Retention of urine, unspecified
CPT/HCPCS: 12345; 33208; 36415; 51702; 71045; 80048; 80053; 80061; 81001; 81003; 83735; 84439; 84443; 84484; 85025; 85610; 85730; 93005; 93306; 93454; 94640; 96375; 97165; 99283; C1769; C1779; C1786; C1887; C1894; C1898; J0461; J0690; J1170; J1265; J1644; J2250; J3010; J3490; J7030; J7050; J7512; Q9967

== ENCOUNTER 2020-05-10 13:59 | Outpatient (CLI) | payer MEDICARE, MEDICAID, SELFPAY ==
--- NOTE | 2020-05-10 14:06 | XR_ITS ---
WS: [id number] PA and lateral chest, 05/10/2020 Clinical Data: bradycardia s/p pacemaker placement Comparison: Portable chest, 05/04/2020. Findings: No nodules, masses or effusions are seen. The 2-lead pacemaker remains in good position wit h the generator overlying the left axilla. The aortic arch and descending aorta are tortuous. No pneu monia or pneumothorax is seen. The pulmonary vascularity is not remarkable. The aortic arch and desce nding aorta show minimal tortuosity. XR/XR chest 2V* [id number] Impression: No change in permanent pacemaker and atherosclerosis.
== END 2020-05-10 14:00 | disposition home or self-care (01) ==
LOC: RAD 14:05
PROVIDERS: PCP Nurse Practitioner Family; Visit Provider Nurse Practitioner Family
DX: Z95.0 Presence of cardiac pacemaker (principal); R00.1 Bradycardia, unspecified; I70.90 Unspecified atherosclerosis
CPT/HCPCS: 71046

== ENCOUNTER 2020-06-01 14:02 | Outpatient (CLI) | payer MEDICARE, MEDICAID, SELFPAY ==
--- NOTE | 2020-06-01 14:15 | USCV_ITS ---
Ar Prather Age: 64 Gender: M : 1955 Exam Date: 06/01/2020 14:41 Ordering Phys: Rocío Goncalves Technologist: Anamaria Rodriguez Exam Location: [facility] [place] Indication: DIZZINESS POST PACEMAKER INSERTION Risk Factors: Unknown Previous Vascular Surgery: PACEMAKER Right Brachial BP: / Left Brachial BP: / Right Left Velocity (cm/s) Spectral Plaque Velocity (cm/s) Spectral Plaque Syst/Diast Broadening Syst/Diast Broadening 90.40/ 22.10 Prox CCA 81.60 / 22.20 79.40/ 28.70 Mid CCA 62.60 / 20.60 69.50/ 22.10 Distal CCA 55.70 / 16.30 Hetro 63.10/ 15.70 Prox ICA 72.90 / 26.60 Hetro 57.50/ 14.90 Hetro Mid ICA 63.50 / 18.90 66.70/ 14.00 Distal ICA 72.00 / 31.70 98.00 ECA 83.20 0.84 ICA/CCA 1.16 Antegrade Vertebral Antegrade 40.40/ 11.50 cm/s 60.90/ 18.00 cm/s Tri Subclavian Tri 80.70 139.8 0 FINDINGS Comparison: none available. No significant elevation of systolic or diastolic velocities. Waveforms are normal. Mixture of calcified and noncalcified plaque in the bifurcations. CONCLUSIONS Bilateral ICA stenosis less than 50%. Mild bilateral atherosclerosis. Dr. Padmini Blue DO (Electronically Signed) Final Date: 01 June 2020 15:38 S
== END 2020-06-01 14:03 | disposition home or self-care (01) ==
LOC: US 14:05
PROVIDERS: PCP Nurse Practitioner Family; Visit Provider Nurse Practitioner Family
DX: R42 Dizziness and giddiness (principal); I65.23 Occlusion and stenosis of bilateral carotid arteries; I70.90 Unspecified atherosclerosis
CPT/HCPCS: 93880

== ENCOUNTER 2020-12-31 06:54 | Outpatient (CLI) | payer MEDICARE, MEDICAID, SELFPAY ==
[2020-12-31 07:32] VITALS: BMI 34.0
--- NOTE | 2020-12-31 08:16 | ECG_ITS ---
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 Interpretive Statements NAME OF STUDY: LEXISCAN SESTAMIBI STRESS TEST INDICATION: Sob/fatigue PROCEDURE: At the baseline, the EKG revealed sinus rhythm with incomplete right bundle branch block pattern. Left axis deviation. Features of left anterior fascicular block. Some nonspecific T wave changes.. The baseline blood pressure was 120/69 mm Hg with a heart rate of 64 beats/min. Lexiscan was infused over a period of 20 seconds. A total of 0.4 milligrams of Lexiscan was infused. The stress phase was continued for a total of 5 minutes. Heart rate at the end of the stress phase was 77 with a blood pressure 116/65. The EKG at the peak infusion revealed no significant changes. Sestamibi was injected 20 seconds after the Lexiscan infusion. Blood pressure at the end of the recovery phase was 119/67 with a heart rate of 77 per minute. CONCLUSION: 1. No significant EKG changes with the LexiScan infusion 2. No LexiScan induced chest pain or cardiac arrhythmia 3. Normal blood pressure and heart rate response 4. Sestamibi/sestamibi perfusion scan pending; see separate report. Electronically Signed On 01-03-2021 10:09:46 CDT by Talib Herndon M.D. [id number]
--- NOTE | 2020-12-31 08:16 | NMCV_ITS ---
NM lawrence perf SPECT r/s* [id number] Ar Prather Age: 65 Gender: M : 1955 Exam Date: 12/31/2020 08:20 Ordering Phys: Talib Herndon MD ([email or web address]) Technologist: VALERIY Campbell Exam Location: [facility] Indications: SOB FRATIGUE STRESS TEST Please see separate stress test report in [facility] for full findings IMAGE PROTOCOL Rest/Stress 1 Lexiscan Day Radiopharmaceutical Dose (mCi) Administration Site Administered by Rest: Tc-99m 9.9 IV VALERIY Malone Sestamibi Stress:Tc-99m 28.4 IV VALERIY Malone Sestamibi Rest: 31-Dec-2020 60 Discovery 630 Stress: 31-Dec-2020 30 Discovery 630 0.4mg Lexiscan. Images obtained in supine and prone position. SPECT RESULTS Technical Quality: Excellent Raw Data Analysis: Normal Image Corrections: No attenuation or motion correction applied Summed Stress Score: 12 Summed Rest Score: 7 Summed Difference Score: 5 PERFUSION FINDINGS Moderate to large area of moderate to severely decreases uptake in the basal, mid and apical inferior; baseline mid inferolateral, apical lateral and LV apex. Significant reversibility was noted in the inferolateral, apical lateral and LV apex. FUNCTIONAL RESULTS (calculated via Gated SPECT) Stress Image LV EF (%): 60 Stress EDV (mL):149 TID: 0.89 Stress ESV (mL):60 FUNCTIONAL FINDINGS: Segmental wall motion analysis revealing mild hypokinesia of the LV apex. IMPRESSIONS 1. Myocardial perfusion imaging revealing moderate to large area of decreased tracer uptake in the inferior, inferolateral, apical lateral and LV apex with significant reversibility in the inferolateral and apical segments suggesting myocardial scarring in the distribution of the right coronary artery and circumflex artery with significant ischemia in the distribution of the circumflex artery. 2. Normal LV ejection fraction of 60%. 3. LV wall motion analysis revealing mild hypokinesia of the LV apex. 4. Mildly dilated LV cavity with an end-systolic volume of 60 mL No similar previous studies are available for comparison Dr Talib Herndon MD FACC (Electronically Signed) Final Date: 01 January 2021 08:55 S
[2020-12-31] MEDS: regadenoson 0.4 Mg/5 ml Syringe IVP (09:16)
[2020-12-31 09:24] VITALS: BP 121/66; PULSE 76
== END 2020-12-31 06:55 | disposition home or self-care (01) ==
LOC: CDL 06:54
PROVIDERS: PCP Nurse Practitioner Family; Visit Provider Internal Medicine Cardiovascular Disease
DX: R06.02 Shortness of breath (principal); R53.83 Other fatigue
CPT/HCPCS: 78452; 93017; A9500; J2785

== ENCOUNTER 2021-08-29 13:16 | Outpatient (CLI) | payer MEDICARE, MEDICAID, SELFPAY ==
--- NOTE | 2021-08-29 13:25 | USCV_ITS ---
PratherAr redd Age: 66 Gender: M : 1955 Exam Date: 08/29/2021 13:46 Ordering Phys: Beverly Griffith Technologist: Exam Location: [facility] [place] Indication: dizzy Risk Factors: None Previous Vascular Surgery: Right Brachial BP: / Left Brachial BP: / Right Left Velocity (cm/s) Spectral Plaque Velocity (cm/s) Spectral Plaque Syst/Diast Broadening Syst/Diast Broadening 66.20/ 18.70 Prox CCA 72.20 / 19.40 76.10/ 16.50 Mid CCA 60.60 / 14.00 57.30/ 14.30 Distal CCA 64.50 / 16.30 Hetro 87.10/ 17.60 Prox ICA 51.90 / 9.90 Hetro 83.80/ 20.90 Mid ICA 67.00 / 21.70 Hetro 99.20/ 30.90 Distal ICA 84.10 / 28.30 102.50 ECA 106.90 1.30 ICA/CCA 1.16 Antegrade Vertebral Antegrade 24.80/ 6.00 cm/s 58.50/ 15.80 cm/s Bi Subclavian Bi 79.20 147.6 0 FINDINGS Comparison:. 06/01/20. Mild bilateral scattered calcified plaque and intimal thickening throughout the common carotid arteries and extending through the bifurcation. No significant elevation of systolic or diastolic velocities. Antegrade vertebral arteries. CONCLUSIONS No change seen from prior study. Bilateral ICA stenosis less than 50%. Dr. Padmini Blue DO (Electronically Signed) Final Date: 29 August 2021 16:05 S
== END 2021-08-29 13:17 | disposition home or self-care (01) ==
LOC: RAD 13:19
PROVIDERS: PCP Nurse Practitioner Family; Visit Provider Nurse Practitioner Family
DX: R42 Dizziness and giddiness (principal); I65.23 Occlusion and stenosis of bilateral carotid arteries
CPT/HCPCS: 93880

== ENCOUNTER 2021-10-01 11:38 | Emergency (ER) | payer MEDICARE, MEDICAID, SELFPAY ==
[2021-10-01 11:52] VITALS: BP 138/86; PULSE 98; RESP 20; TEMP 37.2; O2SAT 92; BMI 34.0
--- NOTE | 2021-10-01 12:03 | XR_ITS ---
WS: [id number] Exam: XR chest 1V portable [id number] Date/Time of Exam: 10/01/2021 12:05 PM Reason For Exam: covid Comparison 05/10/2020. Patchy groundglass infiltrates seen throughout the right lung and also the left lower lung zone consi stent with pneumonia. The lungs are fully inflated. No pleural effusions. Normal cardiomediastinal si lhouette. A permanent cardiac pacer superimposes the left chest. Regional bony structures appear norm al. XR/XR chest 1V portable [id number] IMPRESSION: 1. Patchy groundglass infiltrates throughout the right lung and also the left l ower lung zone consistent with pneumonia. The pattern is nonspecific but can be seen with Covid pneumonia.
--- NOTE | 2021-10-01 12:11 | W.ED.GENADLT ---
HPI - General Adult General: Chief complaint: General Medical Stated complaint: SOB , JUST GOT OVER COVID History of Present Illness: HPI narrative: Patient is 11 days into COVID. Having some shortness of breath. Sats were down in the 70s as per and that was earlier today. Sats in triage 92%. Patient no acute distress is on 2 L O2 denies any other problems presently Onset (ago): week(s) [facility] ED PFSH: Medical History COPD (chronic obstructive pulmonary disease) Depression DJD (degenerative joint disease) Hypertension Mobitz (type) II atrioventricular block Status post pacemaker placement Pacemaker Rheumatoid arthritis Symptomatic bradycardia Tobacco dependency Family History Other CAD (coronary artery disease) Social History Smoking and tobacco status: current every day smoker cigarettes Years cigarettes smoked: 47 Second hand smoke exposure: Yes Alcohol intake: current Alcohol intake frequency: few times a week Alcohol type: beer Lives independently: Yes Household members: spouse Marital status: Current occupational status: retired and disabled History of recent travel: No Current gender identity: Male Course Vital Signs: Vital signs: Vital Signs Temperature 99.0 F 10/01/21 11:52 Pulse Rate 98 10/01/21 11:52 Respiratory Rate 20 H 10/01/21 11:52 Blood Pressure 138/86 10/01/21 11:52 Pulse Oximetry 92 10/01/21 11:52 MDM - General Adult MDM Narrative: Medical decision making narrative: Brief history and physical exam was performed as part of the triage process. Due to current ED wait time patient will be placed in waiting room until a room becomes available. Explained to patient he/she will be seen in order of severity. Patient is currently safe to wait in the waiting room until we can get them placed. Patient informed that if condition worsens at any time to please let the front maker lockstitch know. Discharge Plan Discharge Prescriptions: No Action naproxen 500 mg tablet 500 mg PO BID RF: 0 nitroglycerin 0.4 mg tablet, sublingual 0.4 mg sublingual Q5M PRN (Reason: chest pain) 30 Days Qty: 30 RF: 3 cyclobenzaprine 10 mg tablet 10 mg PO TID PRN (Reason: muscle spasms) RF: 0 prednisone 5 mg tablet 5 mg PO DAILY RF: 0 hydrocodone-acetaminophen 10-325 mg tablet 1 tab PO Q6H PRN (Reason: Pain) RF: 0 venlafaxine 100 mg tablet 100 mg PO DAILY RF: 0 montelukast 10 mg tablet 10 mg PO DAILY RF: 0 hydroxychloroquine 200 mg tablet 200 mg PO BID RF: 0 albuterol sulfate 90 mcg/actuation HFA aerosol inhaler See Rx Instructions .ROUTE .COMPLEX RF: 0 loratadine 10 mg tablet 10 mg PO DAILY RF: 0 Restasis 0.05 % dropperette See Rx Instructions .ROUTE .COMPLEX RF: 0 Symbicort 160-4.5 mcg/actuation HFA aerosol inhaler See Rx Instructions .ROUTE .COMPLEX RF: 0 azelastine-fluticasone 137-50 mcg/spray spray,non-aerosol See Rx Instructions .ROUTE .COMPLEX RF: 0 Xeljanz XR 11 mg tablet extended release 24 hr 11 mg PO DAILY RF: 0 Coding Level of Care Code ED Electrical Technician for Murtaza Garcia
== END 2021-10-01 14:03 | disposition left against medical advice (07) ==
LOC: ER 12:03
PROVIDERS: Emergency Provider Family Medicine; PCP Registered Nurse
DX: U07.1 COVID-19 (principal); J44.9 Chronic obstructive pulmonary disease, unspecified; I10 Essential (primary) hypertension; Z95.0 Presence of cardiac pacemaker; F17.210 Nicotine dependence, cigarettes, uncomplicated
CPT/HCPCS: 71045; 99282